=== PATIENT | male | born 1980 ===

== ENCOUNTER 2020-06-23 08:13 | Outpatient (REF) | payer OTHER, SELFPAY ==
--- NOTE | 2020-06-23 08:45 | XR_ITS ---
EXAMINATION: XR KNEE, RIGHT CLINICAL INFORMATION: Pain COMPARISON: None TECHNIQUE: Four views of the right knee. FINDINGS: Bones and soft tissues are normal. No fracture or joint effusion. Alignment is anatomic. Joint spaces are well maintained. No abnormal soft tissue calcification. XR/XR knee RT 4V IMPRESSION: Normal right knee.
[2020-06-23 08:51] LABS: MANUAL DIFF FLAG NO
[2020-06-23 08:55] LABS: Basophils Percent Auto 0.6 % (0-2); Eosinophils Absolute Auto 0.1 X10*3/uL (0.0-0.4); Hematocrit 44.2 % (42-52); Hemoglobin 15.9 g/dl (14.0-18.0); Imm Gran Abs Auto 0.01 X10*3/uL (0.00-0.03); Imm Gran Pct Auto 0.2 % (0.0-0.4); Lymphocytes Absolute Auto 1.5 X10*3/uL (1.2-4.9); Lymphocytes Percent Auto 30.1 % (20-40); Mean Corpuscular Hemoglobin 31.4 pg (27.0-33.0); Mean Corpuscular Volume 87.4 fL (80-98); Mean Platelet Volume 11.3 fL (9.4-12.4); Monocytes Absolute Auto 0.4 X10*3/uL (0.1-1.2); Monocytes Percent Auto 8.7 % (2-11); Neutrophils Absolute Auto 2.9 X10*3/uL (2.0-8.3); Neutrophils Percent Auto 58.4 % (45-73); Platelet Count 189 X10*3/uL (160-400); Red Blood Count 5.06 X10*6/uL (4.60-5.80); Red Cell Distribution Width 12.8 % (11.0-16.0)
[2020-06-23 09:24] LABS: Alanine Aminotransferase 22 U/L (0-40); Albumin Level 4.5 g/dL (3.5-5.0); Alkaline Phosphatase 48 U/L (39-117); Anion Gap 11 (12-20); Aspartate Amino Transferase 15 U/L (5-37); Bilirubin Total 1.3 mg/dL (0.0-1.0); Blood Urea Nitrogen 17 mg/dL (9-16); Calcium 9.3 mg/dL (8.4-10.2); Carbon Dioxide 28 mmol/L (22-29); Chloride 105 mmol/L (96-108); Cholesterol 173 mg/dL; Estimated Glomerular Filt Rate > 60; Glucose Fasting 95 mg/dL (60-99); HDL Cholesterol 56 mg/dL; LDL Cholesterol Calculated 105 mg/dl; Potassium 5.4 mmol/l (3.3-5.1); Sodium 139 mmol/L (135-145); Total Protein 7.5 g/dL (6.5-8.0); Triglycerides 63 mg/dL
[2020-06-23 10:35] LABS: Glucose Urine UA NEG (NEG); Leukocyte Esterase Urine NEG (NEG); Nitrite Urine NEG (NEG); Prostate Specific Antigen 4.32 ng/mL (<0.05-4.0); Specific Gravity - Urine 1.025 (1.005-1.025); Urine Blood NEG (NEG); Urine Ketones NEG (NEG); Urine Protein NEG (NEG-TRACE)
[2020-06-23 10:40] LABS: Appearance Urine CLEAR; Color Urine YELLOW
== END 2020-06-23 08:14 | disposition home or self-care (01) ==
LOC: HO.LAB 08:13
PROVIDERS: Visit Provider Internal Medicine Medical Oncology
DX: N40.0 Benign prostatic hyperplasia without lower urinary tract symptoms (principal); Z00.00 Encounter for general adult medical examination without abnormal findings; M25.561 Pain in right knee
CPT/HCPCS: 36415; 73564; 80053; 80061; 81003; 84153; 85025

== ENCOUNTER → 2020-07-13 13:34 | Outpatient (BNVA) | payer OTHER, SELFPAY | PROVIDERS: Visit Provider Orthopaedic Surgery | DX: Z76.89 Persons encountering health services in other specified circumstances (principal) ==

== ENCOUNTER 2020-07-21 16:26 | Outpatient (REF) | payer OTHER, SELFPAY | END 2020-07-21 16:27 | disposition home or self-care (01) | LOC: HO.LNP 16:26 | PROVIDERS: Visit Provider Internal Medicine Medical Oncology | DX: R39.9 Unspecified symptoms and signs involving the genitourinary system (principal); R21 Rash and other nonspecific skin eruption | CPT/HCPCS: 87086 ==

== ENCOUNTER 2020-07-28 14:43 | Outpatient (REF) | payer OTHER, SELFPAY ==
[2020-07-28 16:18] LABS: Prostate Specific Antigen 3.78 ng/mL (<0.05-4.0)
[2020-07-29 11:22] LABS: Free Prostate Spec Ag 0.6 ng/mL; Percent Free Prostate Spec Ag 18 % (calc) (>25); Prostate Specific Ag Total 3.4 ng/mL (< OR = 4.0)
== END 2020-07-28 14:44 | disposition home or self-care (01) ==
LOC: HO.LAB 14:43
PROVIDERS: PCP Internal Medicine Medical Oncology; Visit Provider Internal Medicine Medical Oncology
DX: R97.20 Elevated prostate specific antigen [PSA] (principal); Z12.5 Encounter for screening for malignant neoplasm of prostate
CPT/HCPCS: 36415; 84153; 84154

== ENCOUNTER 2021-07-28 10:52 | Outpatient (REF) | payer SELFPAY ==
[2021-07-28 12:51] LABS: Binax Internal Control QC Valid; Binax Now Covid-19 Ag Negative (Negative)
== END 2021-07-28 10:53 | disposition home or self-care (01) ==
LOC: HO.LAB 10:52
PROVIDERS: Visit Provider Internal Medicine
DX: Z20.822 Contact with and (suspected) exposure to COVID-19 (principal)
CPT/HCPCS: C9803

== ENCOUNTER 2024-01-12 08:17 | Outpatient (REF) | payer BC, SELFPAY ==
[2024-01-12 08:29] LABS: MANUAL DIFF FLAG NO
[2024-01-12 09:11] LABS: Basophils Percent Auto 0.5 % (0-2); Eosinophils Absolute Auto 0.1 X10*3/uL (0.0-0.4); Eosinophils Percent Auto 0.9 % (0-4); Hematocrit 43.2 % (42.0-52.0); Hemoglobin 15.5 g/dl (14.0-18.0); Imm Gran Abs Auto 0.02 X10*3/uL (0.00-0.03); Imm Gran Pct Auto 0.3 % (0.0-0.4); Lymphocytes Absolute Auto 1.7 X10*3/uL (1.2-4.9); Lymphocytes Percent Auto 29.5 % (20-40); Mean Corpuscular HGB Conc 35.9 g/dl (31.0-36.0); Mean Corpuscular Hemoglobin 31.3 pg (27.0-33.0); Mean Corpuscular Volume 87.3 fL (80.0-98.0); Mean Platelet Volume 11.2 fL (9.4-12.4); Monocytes Absolute Auto 0.5 X10*3/uL (0.1-1.2); Monocytes Percent Auto 8.1 % (2-11); Neutrophils Absolute Auto 3.5 x10*3/uL (2.0-8.3); Neutrophils Percent Auto 60.7 % (45-73); Platelet Count 189 X10*3/uL (160-400); Red Blood Count 4.95 X10*6/uL (4.60-5.80); Red Cell Distribution Width 12.9 % (11.0-16.0); White Blood Count 5.8 X10*3/uL (4.8-10.8)
[2024-01-12 09:54] LABS: Alanine Aminotransferase 14 U/L (0-40); Albumin Level 4.8 g/dL (3.5-5.0); Alkaline Phosphatase 40 U/L (39-117); Anion Gap 13 (12-20); Aspartate Amino Transferase 18 U/L (5-37); Blood Urea Nitrogen 15 mg/dL (9-16); Calcium 9.8 mg/dL (8.4-10.2); Carbon Dioxide 28 mmol/L (22-29); Chloride 106 mmol/L (96-108); Cholesterol 169 mg/dL (<200); Estimated Glomerular Filt Rate > 60; Glucose Random 84 mg/dL (60-115); HDL Cholesterol 64 mg/dL (>40); LDL Cholesterol Calculated 95 mg/dL (<100); Potassium 4.8 mmol/L (3.3-5.1); Sodium 142 mmol/L (135-145); Total Protein 7.7 g/dL (6.5-8.0); Triglycerides 52 mg/dL (<150)
[2024-01-12 10:12] LABS: Prostate Specific Antigen 4.88 ng/mL (<0.05-4.0)
== END 2024-01-12 08:18 | disposition home or self-care (01) ==
LOC: HO.LAB 08:17
PROVIDERS: PCP Internal Medicine Medical Oncology; Visit Provider Internal Medicine Medical Oncology
DX: Z00.00 Encounter for general adult medical examination without abnormal findings (principal); Z12.5 Encounter for screening for malignant neoplasm of prostate
CPT/HCPCS: 36415; 80053; 80061; 84153; 85025

== ENCOUNTER 2024-04-03 15:00 | Outpatient (REF) | payer BC, SELFPAY ==
[2024-04-04 08:13] LABS: Syphilis Screen Nonreactive (Nonreactive)
[2024-04-04 08:20] LABS: HIV AB/AG Nonreactive (Nonreactive); HIV Num 1 0.06 S/CO (0.00-0.99)
[2024-04-04 12:43] LABS: Free Prostate Spec Ag 0.6 ng/mL; Percent Free Prostate Spec Ag 12 % (calc) (>25); Prostate Specific Ag Total 4.9 ng/mL (< OR = 4.0)
[2024-04-04 13:44] LABS: CT PCR NOT DETECTED (Not Detect.); NG PCR NOT DETECTED (Not Detect.)
== END 2024-04-03 15:01 | disposition home or self-care (01) ==
LOC: HO.LAB 15:00
PROVIDERS: PCP Internal Medicine Medical Oncology; Visit Provider Internal Medicine Medical Oncology
DX: R97.20 Elevated prostate specific antigen [PSA] (principal); Z20.6 Contact with and (suspected) exposure to human immunodeficiency virus [HIV]; Z20.2 Contact with and (suspected) exposure to infections with a predominantly sexual mode of transmission
CPT/HCPCS: 84154; 86780; 87389; 87491; 87591

== ENCOUNTER → 2024-05-08 10:51 | Outpatient (BNVA) | payer OTHER, SELFPAY | PROVIDERS: PCP Internal Medicine Medical Oncology; Visit Provider Physician Assistant | DX: S46.811D Strain of other muscles, fascia and tendons at shoulder and upper arm level, right arm, subsequent encounter (principal); S46.911D Strain of unspecified muscle, fascia and tendon at shoulder and upper arm level, right arm, subsequent encounter; X50.1XXD Overexertion from prolonged static or awkward postures, subsequent encounter | CPT/HCPCS: 73030; 99204 ==

== ENCOUNTER → 2024-05-22 12:00 | Outpatient (BNVA) | payer OTHER, SELFPAY | PROVIDERS: PCP Internal Medicine Medical Oncology; Visit Provider Physician Assistant | DX: S46.811D Strain of other muscles, fascia and tendons at shoulder and upper arm level, right arm, subsequent encounter (principal); S46.911D Strain of unspecified muscle, fascia and tendon at shoulder and upper arm level, right arm, subsequent encounter; X50.1XXD Overexertion from prolonged static or awkward postures, subsequent encounter | CPT/HCPCS: 99213 ==

== ENCOUNTER → 2024-06-05 12:06 | Outpatient (BNVA) | payer OTHER, SELFPAY | PROVIDERS: PCP Internal Medicine Medical Oncology; Visit Provider Physician Assistant Medical | DX: S46.811D Strain of other muscles, fascia and tendons at shoulder and upper arm level, right arm, subsequent encounter (principal); S46.911D Strain of unspecified muscle, fascia and tendon at shoulder and upper arm level, right arm, subsequent encounter; X50.1XXD Overexertion from prolonged static or awkward postures, subsequent encounter | CPT/HCPCS: 99213 ==

== ENCOUNTER → 2024-06-26 12:06 | Outpatient (BNVA) | payer OTHER, SELFPAY | PROVIDERS: PCP Internal Medicine Medical Oncology; Visit Provider Physician Assistant | DX: S46.811D Strain of other muscles, fascia and tendons at shoulder and upper arm level, right arm, subsequent encounter (principal); S46.911D Strain of unspecified muscle, fascia and tendon at shoulder and upper arm level, right arm, subsequent encounter; X50.1XXD Overexertion from prolonged static or awkward postures, subsequent encounter | CPT/HCPCS: 99213 ==

== ENCOUNTER 2024-06-30 15:01 | Outpatient (REF) | payer OTHER, BC, SELFPAY ==
[2024-07-01 12:19] LABS: Free Prostate Spec Ag 0.9 ng/mL; Percent Free Prostate Spec Ag 21 % (calc) (>25); Prostate Specific Ag Total 4.3 ng/mL (< OR = 4.0)
== END 2024-06-30 15:02 | disposition home or self-care (01) ==
LOC: HO.LAB 15:01
PROVIDERS: PCP Internal Medicine Medical Oncology; Visit Provider Internal Medicine Medical Oncology
DX: R97.20 Elevated prostate specific antigen [PSA] (principal)
CPT/HCPCS: 36415; 84154

== ENCOUNTER → 2024-07-17 11:45 | Outpatient (BNVA) | payer OTHER, SELFPAY | PROVIDERS: PCP Internal Medicine Medical Oncology; Visit Provider Physician Assistant | DX: S46.811D Strain of other muscles, fascia and tendons at shoulder and upper arm level, right arm, subsequent encounter (principal); S29.012D Strain of muscle and tendon of back wall of thorax, subsequent encounter; S46.911D Strain of unspecified muscle, fascia and tendon at shoulder and upper arm level, right arm, subsequent encounter; X50.1XXD Overexertion from prolonged static or awkward postures, subsequent encounter | CPT/HCPCS: 99213 ==

== ENCOUNTER 2024-07-25 09:44 | Outpatient (RCR) | payer OTHER, SELFPAY ==
--- NOTE | 2024-09-30 09:16 | MHC.PT.DC ---
[facility] [place] Office [place] Office [place] Office [address] Pamela Petty [address] [phone] F: [phone] F: [phone] F: [phone] F: [phone] Physical Therapy Discharge Report Diagnosis: RIGHT SHOULDER STRAIN (KP) Date of Surgery: N/A Date of Evaluation: 06/18/24 Date of Discharge: 09/30/24 Treatments to Date: 8 Cancellations to Date: 0 No Shows to Date: 0 Discharge Status: Insurance Declined Tx Discharge Summary: Awaiting insurance approval > 60 days. Will need to perform new eval at this time if treatment resumes. Will DC current chart. Electronically signed by: Ericka Barajas PT DPT Please sign and return to therapist. Thank you for your referral.
== END 2024-09-30 09:15 | disposition home or self-care (01) ==
LOC: HO.PT 09:44
PROVIDERS: PCP Internal Medicine Medical Oncology; Visit Provider Physician Assistant
DX: S46.811D Strain of other muscles, fascia and tendons at shoulder and upper arm level, right arm, subsequent encounter (principal)
CPT/HCPCS: 97110; 97140; 97161; 97530

== ENCOUNTER → 2024-07-31 12:02 | Outpatient (BNVA) | payer OTHER, SELFPAY | PROVIDERS: PCP Internal Medicine Medical Oncology; Visit Provider Physician Assistant | DX: S46.811D Strain of other muscles, fascia and tendons at shoulder and upper arm level, right arm, subsequent encounter (principal); S29.012D Strain of muscle and tendon of back wall of thorax, subsequent encounter; S46.911D Strain of unspecified muscle, fascia and tendon at shoulder and upper arm level, right arm, subsequent encounter; X50.1XXD Overexertion from prolonged static or awkward postures, subsequent encounter | CPT/HCPCS: 99214 ==

== ENCOUNTER 2024-10-27 12:41 | Outpatient (AMB) | payer OTHER, SELFPAY ==
--- NOTE | 2024-10-27 12:57 | MHC.OFFVIS ---
Vital Signs 10/27/24 13:02 Height 6 ft 2 in Weight 189 lb BMI 24.3 BP 136/78 Blood Pressure Location Rt brachial Position Sitting Respiration 16 Pulse 78 Pulse Source Pulse Oximeter Pulse Oximetry (%) 99 Oxygen Delivery Method Room Air Intake Visit Reasons: WC Rt Shoulder Intake Note: Pain today 09/22 Welcome Wagon Host/Hostess Required: Yes Welcome Wagon Host/Hostess Language: Baggage Checker Services: Welcome Wagon Host/Hostess Present Welcome Wagon Host/Hostess Name: Carla #[id number] Information Interpreted: non-clinical & clinical Accompanied by: Self / Same As Patient Allergies No Known Allergies Allergy (Verified 10/27/24 13:00) HPI HPI WC Rt Shoulder: Details: PT- CORE finished a few months ago Location: Right shoulder Duration: 1 year Characteristics of symptom or complaint: tightness Aggravating or associated factors: movement Relieving factors: tylenol Treatment: tylenol, PT, HPI Comments Details: The patient is a 44-year-old male presenting with pain evaluation and management. Approximately one year prior, he experienced a work-related right shoulder injury characterized by persistent pain, aggravated by movement and described as muscle spasms. Initial imaging revealed no abnormalities, and pain attributed to muscular issues was exacerbated by prescribed exercises. This pain radiates to the scapula, right cervical paraspinals and shoulder blades and sometimes causes numbness, tingling, and electric sensations in the right upper extremity and particularly right thumb. Although previous treatments like Ibuprofen and Cyclobenzaprine had adverse effects, other medications and referral for neck imaging have been considered to assess cervical radiculopathy. - Onset: Approximately one year ago following work-related injury. - Quality and character: Right shoulder-clicking, aching and popping, Neck-spasming, electric-like, tingling, numbness sensations. - Primary location: Right shoulder, radiating to scapula and right upper trapezius. - Exacerbating factors: Overhead reaching, neck flexion, donning/doffing clothing. - Relieving factors: Hot showers, some reduction with Cyclobenzaprine. 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 - Affect: Pain impacts patient?s ability to perform occupational tasks, particularly overhead activities. - Analgesia: Previous use of Ibuprofen and Cyclobenzaprine; both had adverse effects. Pain remains significant at rest. - Adverse Effects: Chest pain from Ibuprofen; drowsiness from Cyclobenzaprine. - Activities of Daily Living: Restricted overhead painting tasks hinder occupational performance. - Aberrant Drug Related Behaviors: None reported. 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 - Neurological: Reports numbness and tingling in right arm and right thumb; denies headaches currently. - Social: Denies alcohol or illicit drug use except for social alcohol consumption. All systems reviewed & are unremarkable except as noted in HPI and below Physical Exam Vital Signs: Last Vital Signs Pulse Ox 99 10/27/24 13:02 Oxygen Delivery Method Room Air 10/27/24 13:02 BMI result Body Mass Index 24.3 General: Appears afebrile. Alert and oriented. Mood and affect appropriate. Follows and participates in conversation appropriately. Respiratory effort is unlabored. No cough. Able to transition from sit to stand unassisted. Ambulates with bilaterally normal heel strike and toe off. Neck Other: Patient with decreased cervical ROM in all planes/especially with right lateral rotation. Reports increased pain with cervical flexion. Spurling compression test equivocal. Pain is unchanged by Spurling maneuver with retraction. Elvey's tension test positive on the right, with radiation of pain from neck to wrist and tingling in right thumb. Lhermitte's test was negative. DTR intact, +2 and symmetrical. No clonus. Patient demonstrated 5/5 motor strength of bilateral upper extremities. Normal test service operator bilaterally. 2 + radial pulses. Significant tightness throughout right upper trapezius and rhomboids as well as TTP throughout bilateral upper trapezius muscles. No paravertebral tenderness over facet joints bilaterally. Neck: Yes normal visual inspection, Yes full ROM, Yes no lymphadenopathy, Yes supple, No anterior neck swelling, No torticollis, Yes no JVD, No prominent supraclavicular fat pad and No prominent dorsocervical fat pad General: Yes no CVA tenderness Back/Spine/Pelvis Back: no CVA tenderness Cervical Spine: cervical ROM normal, pain with cervical ROM (bending and right sided lateral rotation with bending), No Cervical spine scars present, cervical spasm, No Cervical spine tenderness and No step off deformity Thoracic/Lumbar Spine: thoracic and lumbar spine normal to inspection, No Thoracic/lumbar spine scar(s), thoraco-lumbar ROM normal, No thoracic spinal tenderness and No lumbar spinal tenderness Extrem General: Yes capillary refill normal, Yes no clubbing, cyanosis or edema and Yes no calf tenderness Right upper extremity: shoulder/upper arm (Clicking and popping sounds during overhead movements) Details: normal to inspection, tenderness Location: of the A-C joint, over the biceps tendon and over the subacromial bursa, normal ROM (increased pain with overhead reaches) and crepitus; no swelling, no ecchymosis, no deformity and no unusual warmth Results Reviewed Results Reviewed: XR SHOULDER, RIGHT 05/08/24 CLINICAL INFORMATION: pain and limited ROM COMPARISON: None available. TECHNIQUE: AP external rotation, Grashey, scapular Y, and axillary views of the right shoulder. FINDINGS: No acute fracture. The humeral head is well-seated within the glenoid fossa. The acromioclavicular joint is intact. The coracoid process and visualized scapula are intact. The acromiohumeral interval is normal. No evidence of soft tissue swelling. No abnormal calcifications or loose bodies. The visualized portions of the lungs are clear. Visualized ribs and clavicle are intact. IMPRESSION: Normal right shoulder. Assessment & Plan Assessment & Plan (1) Muscle spasms of neck: Code(s): M62.838 - Other muscle spasm Category: Medical (2) Cervicalgia: Code(s): M54.2 - Cervicalgia Category: Medical (3) Cervical radiculitis: Code(s): M54.12 - Radiculopathy, cervical region Category: Medical (4) Right shoulder pain: Code(s): M25.511 - Pain in right shoulder Category: Medical (5) Work related injury: Code(s): Y99.0 - Civilian activity done for income or pay Category: Medical Plan The patient will proceed with imaging studies including an MRI of the right shoulder and cervical spine X-ray to explore potential causes for prolonged pain and clicking sensation possibly related to rotator cuff pathology or cervical radiculopathy. Tylenol and trial of Gabapentin for symptomatic pain relief, patient is aware to monitor for any side effects. Topical analgesics and heat therapy will assist in managing muscle spasms. The patient is to avoid aggravating movements, emphasizing neck and right shoulder integrity, and will consider interventional approaches once diagnostic data is detailed. All questions and concerns have been answered and patient agreed with the treatment plan. A follow-up will consolidate treatment plans in line with diagnostic outcomes and sooner as needed. Patient was informed and verbally consented to the use of an ambient scribe for clinic note documentation during this visit. Orders: Orders XR cervical spine 4V Today M54.12 - Radiculopathy, cervical region, M54.2 - Cervicalgia, M62.838 - Other muscle spasm MR shoulder RT wo con Today M25.511 - Pain in right shoulder, Y99.0 - Civilian activity done for income or pay Medications: New gabapentin 300 mg PO DAILY 30 days 30 caps 0RF pain M25.511 - Pain in right shoulder, M54.12 - Radiculopathy, cervical region, M54.2 - Cervicalgia camphor-methyl salicyl-menthol 3.1 %-10 %-6 % (large) (Salonpas) may leave on for up to 12 hrs 1 patch topical BID 30 days PRN 6 ea 0RF pain M25.511 - Pain in right shoulder, M54.2 - Cervicalgia, M62.838 - Other muscle spasm Discontinued ibuprofen Discontinued Reason: Patient no longer taking 800 mg PO TID 60 tabs 0RF pain swelling Patient Instructions: I discussed with the patient the likeliness of underlying shoulder joint or nerve involvement, reflected by symptoms of clicking, popping, and nerve irradiation. Diagnostic imaging was ordered to further clarify the source of pain and a pragmatic plan encompassing pharmacological and non-invasive approaches were outlined. I elaborated on Gabapentin's potential efficacy and the rationale behind its recommendation, alongside the importance of MRI findings for complete diagnosis. Interventional techniques requiring sedation were introduced as future solutions contingent upon diagnostic feedback, ensuring patient understanding and consent were confirmed. - Proceed with scheduled MRI for the right shoulder. - Complete cervical spine X-ray today as instructed. - Continue using Tylenol for pain management. - Apply Salonpas patches as necessary for muscle relief. - Avoid provocative shoulder and neck movements. - Try a trial of Gabapentin, monitoring for side effects. - Follow up once diagnostic results are obtained. - Report any worsening symptoms immediately to medical assistance. Coding Level of Care Code New Pt Level 4 (44382) Diagnoses Muscle spasms of neck M62.838 Cervicalgia M54.2 Cervical radiculitis M54.12 Right shoulder pain M25.511 Work related injury Y99.0
[2024-10-27 13:02] VITALS: BP 136/78; PULSE 78; RESP 16; O2SAT 99; BMI 24.3
--- OUTSIDE RECORDS SUMMARY | 2024-10-27 14:35 | XMS_ITS | Encounter Summary ---
Author Organization [facility] Address [address] [place] [address] Care Team Providers Care Mixing Operator Name Role Phone Issac Love MD Primary Care Provider Frieda lopez Encounter Details Date Type Department Care Team Description 06/22/2020 Research Microbiologist Report Medical Records [address] [place] [address] Placido Torres Social History Tobacco Use Types Packs/Day Years Used Date Smoking Tobacco: Former Cigarettes Smokeless Tobacco: Former Alcohol Use Standard Drinks/Week Comments Yes 0 (1 standard drink = 0.6 oz pur e alcohol) very seldom Alcohol Habits Answer Date Recorded How often do you have a drink containing alcohol ? Monthly or less 01/29/2020 How many drinks containing a lcohol do you have on a typical day when you are drinking? 1 or 2 01/29/2020 How often do you have six or more drinks on one occasion? Less than monthly 01/29/2020 Sex Assigned at Date Recorded Male 05/25/2020 8:[address] documented as of this encounter Plan of Treatment Not on file documented as of this encounter Visit Diagnoses Not on filedocumented in this encounter Care Teams Mixing Operator Relationship Specialty Start Date End Date Issac Love MD PCP - General Internal Medicine 10/30/19 documented as of this encounter
--- OUTSIDE RECORDS SUMMARY | 2024-10-27 14:35 | XMS_ITS ---
Author Organization Mahendra Dejesus III, MD Address [address] [place] [address] [place] [address] Care Team Providers Care Manager Camp Name Role Phone Mahendra Dejesus Primary Care Provider Allergies Allergen (clinical drug ingredient) Drug/Non Drug Allergy documented on EMR Reaction Allergy Type Onset Date Status No Known Drug Allergy Unknown Drug Allergy Active REASON FOR VISIT Review labs Social History Tobacco Use: Social History Observation Description Date Details (start date - stop date) Former Smoker NA - NA Sex Assigned At : Social History Observation Description Sex Assigned At Male Tobacco Use/Smoking Question Answer Notes Patient is a former smoker How long has it been since you last smoked? > 10 years Additional Findings: Tobacco Non-User Ex-cigaret te smoker Vital Signs Temperature 97.0 degrees Fahrenheit 07/07/20 24 Blood pressure systolic 115 mm Hg 07/07/20 24 Blood pressure diastolic 89 mm Hg 024 Heart Rate 80 /min 07/07/2024 Height 74 in in 07/07/2024 Weight 188 lbs 07/07/2024 BMI 24.14 kg/m2 07/07/2024 Encounters Encounter Location Date Provider Diagnosis Mahendra Dejesus III, MD [address] [place] [address] [place] [address] 07/07/2024 Mahendra Dejesus Elevated PSA R97.20 ; Right knee pain M25.561 ; Chronic low back pain with sciatica M54.40 ; Former smoker Z87.891 and Migraine with aura and without status migrainosus, not intractable G43.109 Assessments Encounter Date Diagnosis (ICD Code) Assessment Notes Treatment Notes Treatment Clinical Notes 07/07/2024 Elevated PSA (ICD-10 - R97.20) On a recent visit his PSA was slightly elevated at 4.9 with a free PSA of 12. We decided we would repeat it. He had no symptoms and no pelvic pain. The repeat PSA has fallen to 4.3 and the free PSA has increased from 12-21. This is inconsistent with prostate cancer. He'll be observed in the PSA will be repeated in 3 months when he returns in September 2024. 07/07/2024 Right knee pain (ICD-10 - M25.561) This pain has resolved and no longer bothers him. 07/07/2024 Chronic low back pain with sciatica (ICD-10 - M54.40) The pain is intermittent and mild. He is avoiding heavy lifting. 07/07/2024 Former smoker (ICD-10 - Z87.891) He is highly motivated not to smoke. We formulated a plan to prevent relapse in times of stress and illness. 07/07/2024 Migraine with aura and without status migrainosus, not intractable (ICD-10 - G43.109) These are infrequent and he has medication if necessary. Plan Of Treatment Pending Test Test Name Order Date PROFILE, FASTING (COMPREHENSIVE METABOLI C) 07/07/2024 CBC w DIFF 07/07/2024 PSA Free and Total 07/07/2024 Next Appt Details Follow Up: 3 Months, Reason: Office visit Provider Name:Mahendra Dejesus, 02/11/2025 04:00:00 PM, [address] [place] [address] [place] [address], [place], [address], Progress Notes * Kal GARCIA MDOB: (43 yo M)Acc No.[id number]:07/07/2024 Progress Notes Patient:?Navneet GARCIA r Mesha Provider:?Mahendra Dejesus MD :1980???Age:43 Y???Sex:Male Bam e:07/07/2024 Address:[facility] [address] , [place] Subjective: * Chief Complaints: * ???Review labs * HPI: ???COVID-19 Screening:?Questions?Have you had any new onset fever, chills, cough, congestion, sore throat, shortness of breath, muscle aches??No * ROS:?General/Constitutional:?pain?only normal aches and pains.?Chills?denies.?Fatigue?admits.?Fever?denies.?ENT:?Decreased hearing?denies.?Respiratory:?Cough?denies.?Cardiovascular:?Chest pain with exertion?denies.?Dyspnea on exertion?denies.?Shortness of breath?denies.?Gastrointestinal:?Constipation?denies.?Decreased appetite?denies.?Diarrhea?denies.?Heartburn?denies.?Nausea?denies.?Rectal bleeding?denies.?Vomiting?denies.?Hematology:?bruising?denies.?petechiae?denies.?Swollen glands?none have been noted.?Genitourinary:?Frequent urination?denies.?Musculoskeletal:?Muscle aches?denies.?Painful joints?denies.?Sciatica?denies.?Weakness?denies.?Skin:?Itching?denies.?Rash?denies.?Skin lesion(s)?denies.?Neurologic:?Difficulty speaking?denies.?Dizziness?denies.?Headache?denies.?Low back pain?denies.?Psychiatric:?Depressed mood?denies.? * Medical History:? * Surgical History:?No history * Hospitalization/Major Diagno stic Procedure:?No history * Family History:?Father: dece ased, Cause of unknown.?Mother: alive, Alive and well, diagnosed with HTN.?Children: alive.?Siblings: alive.?1 brother(s) , 6 sister(s) - healthy. 1 son(s) , 2 daughter(s) - healthy. .? He has no information about the cause of his father's . His mother is alive and well. His brother and 6 sisters are healthy and well. He is not aware of any inherited cancer family syndromes. * Social History:?Tobacco Use:?Tobacco Use/Smoking?Patient is a?former smoker ?How long has it been since you last smoked??> 10 years ?Additional Findings: Tobacco Non-User?Ex-cigarette smoker ???He was born and raised in [place], [place]. He came to the [facility] 3 years ago. He lives in [facility] and has a significant other. He is working full-time At [employer] in [place] where he is required to wear a mask at times because of exposure to acetone. * Medications:?None * Allergies:?No Known Drug All ergyno[Allergies Verified] Objective: * Vitals:?Ht: 74 in, Wt: 188, BMI:24.14, BP: 115/89, HR: 80, Temp: 97.0, Ht-cm: 187.96, Wt-k.28. * ???Past Orders: Lab:PSA Free and Total * Collection Date 06/30/2024 04/03/2024 Collection Time 03:18 PM 03:25 PM Order Date 06/30/2024 04/03/2024 Prostate Specific Ag Total 4.3?A (Ref Range: < OR = 4.0 ng/mL) 4.9?A (Ref Range: < OR = 4.0 ng/mL) Percent Free Prostate Spec Ag 21?A (Ref Range: >25 % (calc)) 12?A (Ref Range: >25 % (calc)) Free Prostate Spec Ag 0.9 (Ref Range: ng/mL) 0.6 (Ref Range: ng/mL) ???Imaging:XR shoulder RT min 2V (Order Date - 05/08/2024) (Performed Date - 05/08/2024) * Examination: ???General Examination: ?GENERAL APPEARANCE:?pleasant, well nourished, well developed, in no acute distress, calm and relaxed.?HEAD:?atraumatic, normocephalic.?EYES:?eomi, perrla, anicteric, conjugate.?EARS:?normal.?NOSE:?septum intact.?ORAL CAVITY:?normal, unremarkable.?NECK/THYROID:?no jugular venous distention, no carotid bruit, thyroid normal.?LYMPH NODES:?no enlarged lymph nodes,spleen normal.?SKIN:?no suspicious lesions, anicteric.?HEART:?no clicks, gallops, murmurs, or rubs, regular rhythm, S1, S2 normal, no s3, or vascular bruits.?LUNGS:?clear to auscultation .?BREASTS:??no masses palpable bilaterally.?ABDOMEN:?bowel sounds normal, no ascites, no organomegaly, no mass.?RECTAL EXAM:?not examined.?MUSCULOSKELETAL:?extremities unremarkable, no clubbing, cyanosis or edema.?PERIPHERAL PULSES:?normal.?NEUROLOGIC:?alert and oriented, cranial nerves 2-12 grossly intact, deep tendon reflexes 2+ symmetrical, motor strength normal upper and lower extremities, sensory exam intact.?PSYCH:?alert, oriented.? Assessment: * Assessment: 1.?Elevated PSA - R97.20 (Pr imary)???Notes :On a recent visit his PSA was slightly elevated at 4.9 with a free PSA of 12.? We decided we would repeat it.? He had no symptoms and no pelvic pain.? The repeat PSA has fallen to 4.3 and the free PSA has increased from 12-21.? This is inconsistent with prostate cancer.? He'll be observed in the PSA will be repeated in 3 months when he returns in September 2024.???2.?Right knee pain - M25.561???Notes :This pain has resolved and no longer bothers him.???3.?Chronic low back pain with sciatica - M54.40???Notes :The pain is intermittent and mild. He is avoiding heavy lifting.???4.?Former smoker - Z87.891???Notes :He is highly motivated not to smoke. We formulated a plan to prevent relapse in times of stress and illness.???5.?Migraine with aura and without status migrainosus, not intractable - G43.109???Notes :These are infrequent and he has medication if necessary.??? Plan: * Treatment: * Procedure Codes:? * Preventive Medicine:? ??Counseling:?Smoking/Tobacco Use?Patient counseled on the dangers of tobacco use and urged to quit.?07/07/2024 * Follow Up:?3 Months (Reason: Office visit) * Images: * Sign off status: Completed true * Provider:?Mahendra Dejesus MD Date:?06/16 Generated for Mik vasquez/Ruth/eTvladimirsmitting on:?10/27/2024 02:34 PM EDT History and Physical Notes * HPI (History of Present Illness) Category Sub-Category Detail Notes COVID-19 Screening Questions Have you had any new onset fever, chills, cough, congestion, sore throat, shortness of breath, muscle aches?: No Examination Category Sub-Category Detail Notes General Examination GENERAL APPEARANCE: pleasant , well nourished, well developed, in no acute distress, calm and relaxed HEAD: atraumatic, normocep halic EYES: eomi, perrla, anicte cindy, conjugate EARS: normal NOSE: septum intact NECK/THYROID: no jugular venous di stention, no carotid bruit, thyroid normal HEART: no clicks, gallops, murmurs, or rubs, regular rhythm, S1, S2 normal, no s3, or vascular bruits LUNGS: clear to auscultatio n ABDOMEN: bowel sounds normal, no ascites, no organomegaly, no mass NEUROLOGIC: alert and oriented, cranial nerves 2-12 grossly intact, deep tendon reflexes 2+ symmetrical, motor strength normal upper and lower extremities, sensory exam intact SKIN: no suspicious lesion s, anicteric PERIPHERAL PULSES: normal BREASTS: no masses palpable b ilaterally MUSCULOSKELETAL: extremities unremark able, no clubbing, cyanosis or edema LYMPH NODES: no enlarged lymph no january,spleen normal RECTAL EXAM: not examined PSYCH: alert, oriented ORAL CAVITY: normal, unremarkable
--- OUTSIDE RECORDS SUMMARY | 2024-10-27 14:35 | XMS_ITS ---
Author Organization Mahendra Dejesus III, MD Address [address] [place] [address] Care Team Providers Care Recreation Therapy Aides Teacher Name Role Phone Mahendra Dejesus Primary Care Provider [phone] Results Component Value Reference Range Notes PSA Free and Total Reviewed date:05/12/2024 09:23:19 AM Interpretation: Performing Lab:[facility], [address] [place] [phone] Notes/Report: Prostate Specific Ag Total 4.9 < OR = 4.0 ng/ mL Percent Free Prostate Spec Ag 12 >25 % (calc) PSA(ng/mL) Free PSA(%) Estimated(x) Probability of Cancer(as%) 0-2.5 (*) Approx. 1 2.6-4.0(1) 0-27(2) 24(3) 4.1-10(4) 0-10 56 11-15 28 16-20 20 21-25 16 >or =26 8 >10(+) N/A >50 References:(1)Toshia et al.:Urology 60: 469-474 (2002) (2)Lloydona et al.:J.Urol 168: 922-925 (2001) Free PSA(%) Sensitivity(%) Specificity(%) < or = 25 85 19 < or = 30 93 9 (3)oTshia et al.:KACI 277: 3215-5315 (1996) (4)Catalona et al.:KACI 279: 6023-4062 (1997) (x)These estimates vary with age, ethnicity, family history and CAMERON results. (*)The diagnostic usefulness of % Free PSA has not been established in patients with total PSA below 2.6 ng/mL (+)In men with PSA above 10 ng/mL, prostate cancer risk is determined by total PSA alone. The Total PSA value from this assay system is standardized against the equimolar PSA standard. The test result will be approximately 20% higher when compared to the WHO-standardized Total PSA (Siemens assay). Comparison of serial PSA results should be interpreted with this fact in mind. PSA was performed using the Eugenia [place] Immunoassay method. Values obtained from different assay methods cannot be used interchangeably. PSA levels, regardless of value, should not be interpreted as absolute evidence of the presence or absence of disease. THIS TEST WAS PERFORMED AT: [facility] [address] [address] BENNY BLOOD MD Free Prostate Spec Ag 0.6 CT NG by PCR Reviewed date:05/12/2024 09:23:19 AM Interpretation: Performing Lab:[facility], [address] [place] [phone] Notes/Report: Urine CT PCR NOT DETECTED Not Detect. A not detected test result does not exclude the possibility of infection because test results can be affected by improper specimen collection, concurrent antibiotic therapy, or the number of organisms in the specimen which may be below the sensitivity of the test. As with many diagnostic tests, results from the Xpert CT/NG assay should be interpreted in conjunction with other laboratory and clinical data available to the clinician. Xpert CT/NG performance has not been evaluated in patients less than 14 years of age. The assay should not be used for the evaluation of suspected sexual abuse or for other medico-legal indications. Additional testing is recommended in any circumstance when false positive or false negative results could lead to adverse medical, social or psychological consequences. NG PCR NOT DETECTED Not Detect. A not detected test result does not exclude the possibility of infection because test results can be affected by improper specimen collection, concurrent antibiotic therapy, or the number of organisms in the specimen which may be below the sensitivity of the test. As with many diagnostic tests, results from the Xpert CT/NG assay should be interpreted in conjunction with other laboratory and clinical data available to the clinician. Xpert CT/NG performance has not been evaluated in patients less than 14 years of age. The assay should not be used for the evaluation of suspected sexual abuse or for other medico-legal indications. Additional testing is recommended in any circumstance when false positive or false negative results could lead to adverse medical, social or psychological consequences. HIV Ab/Ag Reviewed date:05/12/2024 09:23:19 AM Interpretation: Performing Lab:[facility], [address] [place] [address], [place] [address] Notes/Report: HIV AB/AG Nonreactive Nonreactive HIV-1 p24 Ag and/or HIV-1/HIV-2 Ab not detected. A test result that is nonreactive does not exclude the possibility of exposure to or infection with HIV-1 and/or HIV-2. Nonreactive results in this assay for individuals with prior exposure to HIV-1 and/or HIV-2 may be due to antigen and antibody levels that are below the limit of detection of this assay. The [employer] HIV Ag/Ab Combo assay result and supplemental assay results should be interpreted in conjunction with the patient's clinical presentation, history and other laboratory results. If the results are inconsistent with clinical evidence, additional testing is suggested to confirm the result. REASON FOR VISIT needs new order for labs Social History Sex Assigned At : Social History Observation Description Sex Assigned At Male Encounters Encounter Location Date Provider Diagnosis Mahendra Dejesus III, MD [address] [place] [address] [address] [place] [address] 04/03/2024 Mahendra Dejesus HIV exposure Z20.6 ; Elevated PSA R97.20 and Exposure to STD Z20.2 Assessments Encounter Date Diagnosis (ICD Code) Assessment Notes Treatment Notes Treatment Clinical Notes 04/03/2024 HIV exposure (ICD-10 - Z20.6) 04/03/2024 Elevated PSA (ICD-10 - R97.20) 04/03/2024 Exposure to STD (ICD-10 - Z20.2) Plan Of Treatment Next Appt Details Provider Name:Mahendra Dejesus, 02/11/2025 04:00:00 PM, [address] [place] [address] [address], [place], [address], Progress Notes * Kal GARCIA MDOB: (43 yo M)Acc No.[id number]:04/03/2024 Patient:?Navneet Garcia :1980???Age:43 Y???Sex:Male Address:[address], [address], [place], [address] Subjective: * Chief Complaints: * ???Needs new order for labs * Medical History:? * Surgical History:? * Hospitalization/Major Diagno stic Procedure:? * Medications:? Objective: Assessment: * Assessment: 1.?HIV exposure - Z20.6?2.?E levated PSA - R97.20?3.?Exposure to STD - Z20.2? Plan: * Treatment: 2.?Elevated PSA?LAB: PSA, TOTAL ?LAB: RPR CARD TEST ?LAB: PSA Free and Total ?LAB: CT NG by PCR ?LAB: HIV Ab/Ag 3.?Exposure to STD?LAB: PSA, TOTAL ?LAB: RPR CARD TEST ?LAB: PSA Free and Total ?LAB: CT NG by PCR ?LAB: HIV Ab/Ag * Procedure Codes:? * true * Date:? Generated for Printi ng/Faxing/eTransmitting on:?10/27/2024 02:34 PM EDT
--- OUTSIDE RECORDS SUMMARY | 2024-10-27 14:35 | XMS_ITS | Patient Health Record ---
Author Organization Mahendra Dejesus III, MD Address [address] [place] [address] Care Team Providers Care Media Specialist Name Role Phone Mahendra Dejesus Primary Care Provider [phone] Allergies Allergen (clinical drug ingredient) Drug/Non Drug Allergy documented on EMR Reaction Allergy Type Onset Date Status No Known Drug Allergy Unknown Drug Allergy Active Results Component Value Reference Range Notes Complete Blood Count Auto Di ff Reviewed date:02/11/2024 02:05:02 PM Interpretation: Performing Lab:[facility], [address] [place] [phone] Notes/Report: White Blood Count 5.8 4.8-10.8 X10*3/uL Red Blood Count 4.95 4.60-5.80 X10*6/uL Hemoglobin 15.5 14.0-18.0 g/dl Hematocrit 43.2 42.0-52.0 % Mean Corpuscular Volume 87.3 80.0-98.0 fL Mean Corpuscular Hemoglobin 31.3 27.0-33.0 pg Mean Corpuscular HGB Conc 35.9 31.0-36.0 g/dl Red Cell Distribution Width 12.9 11.0-16.0 % Platelet Count 189 160-400 X10*3/uL Mean Platelet Volume 11.2 9.4-12.4 fL Neutrophils Percent Auto 60.7 45-73 % Imm Gran Pct Auto 0.3 0.0-0.4 % Lymphocytes Percent Auto 29.5 20-40 % Monocytes Percent Auto 8.1 2-11 % Eosinophils Percent Auto 0.9 0-4 % Basophils Percent Auto 0.5 0-2 % NRBC Pct Auto 0.0 0.0-0.2 /100WBC Neutrophils Absolute Auto 3.5 2.0-8.3 x10*3/uL Imm Gran Abs Auto 0.02 0.00-0.03 X10*3/uL Lymphocytes Absolute Auto 1.7 1.2-4.9 X10*3/uL Monocytes Absolute Auto 0.5 0.1-1.2 X10*3/uL Eosinophils Absolute Auto 0.1 0.0-0.4 X10*3/uL Basophils Absolute Auto 0.0 0.0-0.2 X10*3/uL NRBC Abs Auto 0.000 0.0-0.012 X10*3/uL Comprehensive Met. Panel Reviewed date:02/11/2024 02:05:02 PM Interpretation: Performing Lab:[address] [address] Notes/Report: Sodium 142 135-145 mmol/L Potassium 4.8 3.3-5.1 mmol/L Chloride 106 96-108 mmol/L Carbon Dioxide 28 22-29 mmol/L Anion Gap 13 12-20 Blood Urea Nitrogen 15 9-16 mg/dL Creatinine 0.88 0.5-1.4 mg/dL Estimated Glomerular Filt Rate > 60 NOTE: For -Tristanian individuals, multiply the result by 1.210. Chronic Kidney Disease: Estimated GFR < 60 mL/min/1.73m2 Severe Kidney Disease: Estimated GFR < 15 mL/min/1.73m2 Glucose Random 84 60-115 mg/dL Calcium 9.8 8.4-10.2 mg/dL Bilirubin Total 3.0 0.0-1.0 mg/dL Aspartate Amino Transferase 18 5-37 U/L Alanine Aminotransferase 14 0-40 U/L Total Protein 7.7 6.5-8.0 g/dL Albumin Level 4.8 3.5-5.0 g/dL Alkaline Phosphatase 40 39-117 U/L Lipid Panel Reviewed date:02/11/2024 02:05:02 PM Interpretation: Performing Lab:[address] [address] Notes/Report: Triglycerides 52 <150 mg/dL Desirable Triglyceride: less than 150 mg/dL Borderline High Triglyceride 150-199 mg/dL High Triglyceride: 200-499 mg/dL Very High Triglyceride: greater than or equal to 5OO mg/dL Cholesterol 169 <200 mg/dL Desirable Cholesterol: less than 200 mg/dL Borderline High Cholesterol: 200-239 mg/dL High Cholesterol: greater than 239 mg/dL LDL Cholesterol Calculated 95 <100 mg/dL Desirable LDL: less than 100 mg/dL Near Optimal/Above Optimal LDL: 110-129 mg/dL Borderline High LDL: 130-159 mg/dL High LDL: 160-189 mg/dL Very High LDL: greater than or equal to 190 mg/dL HDL Cholesterol 64 >40 mg/dL Desirable HDL: greater than 40 mg/dL Note: This HDL assay may give artificially low results in patients with liver disease. Prostate Specific Antigen Reviewed date:02/11/2024 02:05:02 PM Interpretation: Performing Lab:[address] [address] Notes/Report: Prostate Specific Antigen 4.88 <0.05-4.0 ng/mL PSA methodology: Lamar Alinity i Chemiluminescent Microparticle Immunoassay (CMIA) URINE DIP STICK Reviewed date:02/11/2024 03:35:43 PM Interpretation: Performing Lab: Notes/Report: SG 1.010 1.005 - 1.025 pH 7.0 5.0 - 9.0 PORTIA Negative Negative - NIT Negative Negative - PRO 15 Negative - Trace GLU Negative Negative - KET Negative Negative - UBG 0.2 0.1 - 1.8 JACKY Negative 0.2 - 1.3 BLD Negative Negative - Syphilis Screen Reviewed date:05/12/2024 09:23:19 AM Interpretation: Performing Lab:[address] [address] Notes/Report: Syphilis Screen Nonreactive Nonreactive PSA Free and Total Reviewed date:05/12/2024 09:23:19 AM Interpretation: Performing Lab:[address] [address] Notes/Report: Prostate Specific Ag Total 4.9 < OR = 4.0 ng/mL Percent Free Prostate Spec Ag 12 >25 % (calc) PSA(ng/mL) Free PSA(%) Estimated(x) Probability of Cancer(as%) 0-2.5 (*) Approx. 1 2.6-4.0(1) 0-27(2) 24(3) 4.1-10(4) 0-10 56 11-15 28 16-20 20 21-25 16 >or =26 8 >10(+) N/A >50 References:(1)Lloyd parmar et al.:Urology 60: 469-474 (2001) (2)Toshia et al.:J.Urol 168: 922-925 (2001) Free PSA(%) Sensitivity(%) Specificity(%) < or = 25 85 19 < or = 30 93 9 (3)Lloydona et al.:KACI 277: 4990-4535 (1996) (4)Catalona et al.:KACI 279: 1919-5815 (1997) (x)These estimates vary with age, ethnicity, [...] mind. PSA was performed using the Eugenia [place] Immunoassay method. Values obtained from different assay methods cannot be used interchangeably. PSA levels, regardless of value, should not be interpreted as absolute evidence of the presence or absence of disease. THIS TEST WAS PERFORMED AT: [facility] [address] [address] BENNY BLOOD MD Free Prostate Spec Ag 0.6 CT NG by PCR Reviewed date:05/12/2024 09:23:19 AM Interpretation: Performing Lab:[facility], [address] [place] [phone] Notes/Report: Urine CT PCR NOT DETECTED Not [...] Ab/Ag Reviewed date:05/12/2024 09:23:19 AM Interpretation: Performing Lab:[facility], [address] [place] [address] Notes/Report: HIV AB/AG Nonreactive Nonreactive HIV-1 p24 [...] limit of detection of this assay. The [employer] HIV Ag/Ab Combo assay result and supplemental assay results should be interpreted in conjunction with the patient's clinical presentation, history and other laboratory results. If the results are inconsistent with clinical evidence, additional testing is suggested to confirm the result. XR shoulder RT min 2V Reviewed date:05/12/2024 09:23:19 AM Interpretation: Performing Lab: Notes/Report: [address] [place] [address] XRay Report Signed Patient: Kal Oquendo#: [id number] : 1980 Acct:[id number] Age/Sex: 43 / M ADM Date: 05/08/24 Loc: HO. Attending Dr: Gracy LANDRY Ordering Physician: Gracy Mitchell Date of Service: 05/08/24 Procedure(s): XR shoulder RT min 2V Accession Number(s): [id number] cc: Mahendra Dejesus MD; Gracy Mitchell EXAMINATION: XR SHOULDER, RIGHT CLINICAL INFORMATION: pain and limited ROM COMPARISON: None available. TECHNIQUE: AP external rotation, Grashey, scapular Y, and axillary views of the right shoulder. FINDINGS: No acute fracture. The humeral head is well-seated within the glenoid fossa. The acromioclavicular joint is intact. The coracoid process and visualized scapula are intact. The acromiohumeral interval is normal. No evidence of soft tissue swelling. No abnormal calcifications or loose bodies. The visualized portions of the lungs are clear. Visualized ribs and clavicle are intact. XR/XR shoulder RT min 2V IMPRESSION: Normal right shoulder. Electronically signed by: Henrietta Marsh DO 05/08/2024 04:18 PM EDT Dictated By: Henrietta Marsh Signed By: <Electronically signed by Henrietta Marsh in OV> 05/08/24 1618 DD/ 1153 TD/TT: 05/08/24 1153 Portuguese Tutor: [place] [address] XRay Report Signed Patient: Kal Oquendo R#: [id number] : 1980 Acct:[id number] Age/Sex: 43 / M ADM Date: 05/08/24 Loc: HO. Attending Dr: Gracy LANDRY Ordering Physician: Gracy Mitchell Date of Service: 05/08/24 Procedure(s): XR shoulder RT min 2V Accession Number(s): [id number] cc: Mahendra Dejesus MD; Gracy Mitchell EXAMINATION: XR SHOULDER, RIGHT CLINICAL INFORMATION: pain and limited ROM COMPARISON: None available. TECHNIQUE: AP external rotation , Grashey, scapular Y, and axillary views of the right shoulder. FINDINGS: No acute fracture. T he humeral head is well-seated within the glenoid fossa. The acromioclavicular joint is intact. The coracoid process and visualized scapula a re intact. The acromiohumeral interval is normal. No evidence of soft tissue swelling. No abnormal calcifications or loose bodies. The visualized portions of the lungs are clear. Visualized ribs and clavicle are intact. X R/XR shoulder RT min 2V IMPRESSION: Normal right shoulder. Electronically frank d by: Henrietta Marsh DO 05/08/2024 04:18 PM EDT RP Dictated By: Henrietta Marsh Signed By: <Electronically signed by Henrietta Marsh in OV> 05/08/24 1618 DD/ 1153 TD/TT: 05/08/24 1153 Portuguese Tutor: PSA Free and Total Reviewed date:07/07/2024 05:41:58 AM Interpretation: Performing Lab:[facility], [address] [place] [phone] Notes/Report: Prostate Specific Ag Total 4.3 < OR = 4.0 ng/mL Percent Free Prostate Spec Ag 21 >25 % (calc) PSA(ng/mL) Free PSA(%) Estimated(x) Probability of Cancer(as%) 0-2.5 (*) Approx. 1 2.6-4.0(1) 0-27(2) 24(3) 4.1-10(4) 0-10 56 11-15 28 16-20 20 21-25 16 >or =26 8 >10(+) N/A >50 References:(1)Lloyd parmar et al.:Urology 60: 469-474 (2002) (2)Toshia et al.:J.Urol 168: 922-925 (2001) Free PSA(%) Sensitivity(%) Specificity(%) < or = 25 85 19 < or = 30 93 9 (3)Lloydona et al.:KACI 277: 9925-9391 (1996) (4)Catalona et al.:KACI 279: 2423-3963 (1998) (x)These estimates vary with age, ethnicity, family [...] mind. PSA was performed using the Eugenia Rixford Immunoassay method. Values obtained from different assay methods cannot be used interchangeably. PSA levels, regardless of value, should not be interpreted as absolute evidence of the presence or absence of disease. THIS TEST WAS PERFORMED AT: [facility] [address] [place] [phone] BENNY BLOOD MD Free Prostate Spec Ag 0.9 Reason For Referral No Information Immunizations Vaccine Route Administration Date Status Comme nts DTP Unknown 02/07/1983 Administered DTP Unknown 1982 Administered DTP Unknown 1982 Administered DTP Unknown 05/22/1984 Administered DTP Unknown 12/14/1987 Administered Td (adult) Unknown 10/21/1998 Administered IPV Unknown 1982 Administered IPV Unknown 1982 Administered IPV Unknown 02/01/1983 Administered IPV Unknown 05/22/1984 Administered IPV Unknown 12/14/1987 Administered MMR Unknown 10/25/1983 Administered MMR Unknown 12/08/1983 Administered MMR Unknown 02/16/1999 Administered Hepatitis B Unknown 06/19/2000 Administered Hepatitis B Unknown 05/02/2002 Administered COVID- 19 Vaccine Unknown 08/02/2021 Administered COVID- 19 Vaccine Unknown 07/04/2021 Administered Social History Tobacco Use: Social History Observation Description Date Details (start date - stop date) Former Smoker NA - NA Sex Assigned At : Social History Observation Description Sex Assigned At Male Tobacco Use/Smoking Question Answer Notes Patient is a former smoker How long has it been since you last smoked? > 10 years Additional Findings: Tobacco Non-User Ex-cigaret te smoker Alcohol Screen Question Answer Notes Did you have a drink containing alcohol in the p ast year? No Points 0 Interpretation Negative Problems Problem Type SNOMED Code ICD Code Onset Dates Problem Status W/U Status Risk Notes Problem 9915625 Former smoker (Z87.891) Active confirmed He is highly motivated not to smoke. We formulated a plan to prevent relapse in times of stress and illness. Problem Right knee pain ([id number] 4105) Right knee pain (M25.561) Active confirmed This pain has resolved and no longer bothers him. Problem Sciatica (11422368) Chronic low back pain with sciatica (M54.40) Active confirmed The pain is intermittent and mild. He is avoiding heavy lifting. Problem 060651894 Elevated PSA (R97.20) Active confirmed On a recent visit his PSA was [...] months when he returns in September 2024. Problem 906759766 Benign prostatic hyperplasia, unspecified whether lower urinary tract symptoms present (N40.0) Active confirmed Problem 4055830 Migraine with aura and without status migrainosus, not intractable (G43.109) Active confirmed These are infrequent and he has medication if necessary. Vital Signs Heart Rate 80 /min 07/07/2024 Temperature 97.0 degrees Fahrenheit 07/07/2024 Blood pressure diastolic 89 mm Hg 07/07/2024 Height 74 in in 07/07/2024 Blood pressure systolic 115 mm Hg 07/07/2024 Weight 188 lbs 07/07/2024 BMI 24.14 kg/m2 07/07/2024 Encounters Encounter Location Date Provider Diagnosis Mahendra Dejesus III, MD [address] [place] [address] [place] [address] 02/11/2024 Mahendra Dejesus Elevated PSA R97.20 ; Right knee pain M25.561 ; Chronic low back pain with sciatica M54.40 ; Former smoker Z87.891 ; Migraine with aura and without status migrainosus, not intractable G43.109 and Benign prostatic hyperplasia, unspecified whether lower urinary tract symptoms present N40.0 Mahendra Dejesus III, MD [address] [place] [address] [place] [address] 05/13/2024 Mahendra Dejesus Elevated PSA R97.20 ; Chronic low back pain with sciatica M54.40 ; Right knee pain M25.561 ; Former smoker Z87.891 ; Migraine with aura and without status migrainosus, not intractable G43.109 and Benign prostatic hyperplasia, unspecified whether lower urinary tract symptoms present N40.0 Mahendra Dejesus III, MD [address] [place] [address] [address] [place] [address] 07/07/2024 Mahendra Dejesus Elevated PSA R97.20 ; Right knee pain M25.561 ; Chronic low back pain with sciatica M54.40 ; Former smoker Z87.891 and Migraine with aura and without status migrainosus, not intractable G43.109 Mahendra Dejesus III, MD [address] [place] [address] [address] [place] [address] 04/03/2024 Mahendra Dejesus HIV exposure Z20.6 ; Elevated PSA R97.20 and Exposure to STD Z20.2 Assessments Encounter Date Diagnosis (ICD Code) Assessment Notes Treatment Notes Treatment Clinical Notes 02/11/2024 Right knee pain (ICD-10 - M25.561) This pain has resolved and no longer bothers him. 02/11/2024 Elevated PSA (ICD-10 - R97.20) His PSA is slightly elevated we'll 0.88. It will be repeated to see if it is rising. A free PSA will be ordered. He was quite concerned with this value. He requested to be screening for sexually transmitted diseases. 05/13/2024 Chronic low back pain with sciatica (ICD-10 - M54.40) The pain is intermittent and mild. He is avoiding heavy lifting. 05/13/2024 Elevated PSA (ICD-10 - R97.20) The PSA is slightly elevated but the free PSA is low at 12%. The PSA will be repeated in 3 months with a free PSA 07/07/2024 Right knee pain (ICD-10 - M25.561) This pain has resolved and no longer bothers him. 07/07/2024 Elevated PSA (ICD-10 - R97.20) On [...] months when he returns in September 2024. 02/11/2024 Chronic low back pain with sciatica (ICD-10 - M54.40) The pain is intermittent and mild. He is avoiding heavy lifting. 05/13/2024 Right knee pain (ICD-10 - M25.561) This pain has resolved and no longer bothers him. 07/07/2024 Chronic low back pain with sciatica (ICD-10 - M54.40) The pain is intermittent and mild. He is avoiding heavy lifting. 04/03/2024 HIV exposure (ICD-10 - Z20.6) 02/11/2024 Former smoker (ICD-10 - Z87.891) He is highly motivated not to smoke. We formulated a plan to prevent relapse in times of stress and illness. 05/13/2024 Former smoker (ICD-10 - Z87.891) He is highly motivated not to smoke. We formulated a plan to prevent relapse in times of stress and illness. 07/07/2024 Former smoker (ICD-10 - Z87.891) He is highly motivated not to smoke. We formulated a plan to prevent relapse in times of stress and illness. 04/03/2024 Elevated PSA (ICD-10 - R97.20) 02/11/2024 Migraine with aura and without status migrainosus, not intractable (ICD-10 - G43.109) These are infrequent and he has medication if necessary. 05/13/2024 Migraine with aura and without status migrainosus, not intractable (ICD-10 - G43.109) These are infrequent and he has medication if necessary. 07/07/2024 Migraine with aura and without status migrainosus, not intractable (ICD-10 - G43.109) These are infrequent and he has medication if necessary. 04/03/2024 Exposure to STD (ICD-10 - Z20.2) 02/11/2024 Benign prostatic hyperplasia, unspecified whether lower urinary tract symptoms present (ICD-10 - N40.0) 05/13/2024 Benign prostatic hyperplasia, unspecified whether lower urinary tract symptoms present (ICD-10 - N40.0) Plan Of Treatment Pending Test Test Name Order Date PROFILE, FASTING (COMPREHENSIVE METABOLI C) 07/07/2024 CBC w DIFF 07/07/2024 XR KNEE RT 4 VIEWS 06/15/2020 PSA Free and Total 07/07/2024 Next Appt Details Provider Name:Mahendra Dejesus, 02/11/2025 04:00:00 PM, [address] [place] [address] [address], [address], [place], [address], Insurance Providers Payer Name Payer Address Payer Phone Subscriber Number Group Number Insured Name Patient Relationship to Insured Coverage Start Date Coverage End Date [facility] [address] [place], [place] [id number] [phone] [id number] Kal Oquendo Self - patient is the insured Medical (General) History Medical History History ICD Code Chronic low back pain with sciatica M54. 40 Migraine headache G43.909 chronic right knee pain former smoker Surgical History Surgery Date(Month/Year) No history Hospitalization History Reason Date(Month/Year) No history
--- OUTSIDE RECORDS SUMMARY | 2024-10-27 14:35 | XMS_ITS ---
Author Organization Mahendra Dejesus III, MD Address [address] [place] [address] [place] [address] Care Team Providers Care Manager Pharmaceutical Name Role Phone Mahendra Dejesus Primary Care Provider Allergies Allergen (clinical drug ingredient) Drug/Non Drug Allergy documented on EMR Reaction Allergy Type Onset Date Status No Known Drug Allergy Unknown Drug Allergy Active REASON FOR VISIT Low back pain, Migraine, I discussed with Social History Tobacco Use: Social History Observation Description Date Details (start date - stop date) Former Smoker NA - NA Sex Assigned At : Social History Observation Description Sex Assigned At Male Tobacco Use/Smoking Question Answer Notes Patient is a former smoker How long has it been since you last smoked? > 10 years Additional Findings: Tobacco Non-User Ex-cigaret te smoker Vital Signs Height 74 in in 05/13/2024 Weight 186 lbs 05/13/2024 BMI 23.88 kg/m2 05/13/2024 Encounters Encounter Location Date Provider Diagnosis Mahendra Dejesus III, MD [address] [place] [address] [place] [address] 05/13/2024 Mahendra Dejesus Elevated PSA R97.20 ; Chronic low back pain with sciatica M54.40 ; Right knee pain M25.561 ; Former smoker Z87.891 ; Migraine with aura and without status migrainosus, not intractable G43.109 and Benign prostatic hyperplasia, unspecified whether lower urinary tract symptoms present N40.0 Assessments Encounter Date Diagnosis (ICD Code) Assessment Notes Treatment Notes Treatment Clinical Notes 05/13/2024 Elevated PSA (ICD-10 - R97.20) The PSA is slightly elevated but the free PSA is low at 12%. The PSA will be repeated in 3 months with a free PSA 05/13/2024 Chronic low back pain with sciatica (ICD-10 - M54.40) The pain is intermittent and mild. He is avoiding heavy lifting. 05/13/2024 Right knee pain (ICD-10 - M25.561) This pain has resolved and no longer bothers him. 05/13/2024 Former smoker (ICD-10 - Z87.891) He is highly motivated not to smoke. We formulated a plan to prevent relapse in times of stress and illness. 05/13/2024 Migraine with aura and without status migrainosus, not intractable (ICD-10 - G43.109) These are infrequent and he has medication if necessary. 05/13/2024 Benign prostatic hyperplasia, unspecified whether lower urinary tract symptoms present (ICD-10 - N40.0) Plan Of Treatment Next Appt Details Follow Up: 8 W, 8 weeks from now, Reason: F/U, Check-up and repeat blood test Provider Name:Mahendra Dejesus, 02/11/2025 04:00:00 PM, [address] [place] [address] DR, [address], [place], [address], Progress Notes * Kal GARCIA MDOB: (43 yo M)Acc No.[id number]:05/13/2024 Patient:?Navneet GARCIA Provider:?Mahendra Dejesus MD :1980???Age:43 Y???Sex:Male Bam e:05/13/2024 Address:[facility] [address], [place], [place] Subjective: * Chief Complaints: * ???Low back painMigraineI di scussed with * HPI: ???:?Telehealth?Location of provider rendering services:?{...} [address] [facility] [address] ?Location of patient:?address listed in demographics for today's visit ?Patient identification confirmed using:?Name, ?Telehealth method:?Telephone only. Patient not visible to care provider. ?Consent:?Patient verbally consented to treatment, Patient verbally consented to billing insurance company, Patient informed of any privacy concerns related to method of visit ?Total time spent with patient (mins)?15 ?Kal, a 43-year-old male patient, reported to Dr. Dejesus for a telephonic visit. The patient had undergone blood tests for sexually transmitted diseases, including syphilis, chlamydia, gonorrhea, and HIV, all of which returned negative results. The patient's Prostate-Specific Antigen (PSA) level was found to be 4.9, which is borderline between normal and abnormal. The free PSLE level was 12%. The patient also reported experiencing back problems.? His low back pain has improved and his right knee is no longer painful.? He is rising from sleep once or twice a night to urinate depending upon fluid intake.? We have reviewed lifestyle modification. * ROS:?General/Constitutional:?pain?only normal aches and pains.?Chills?denies.?Fatigue?admits.?Fever?denies.?ENT:?Decreased hearing?denies.?Respiratory:?Cough?denies.?Cardiovascular:?Chest pain with exertion?denies.?Dyspnea on exertion?denies.?Shortness of breath?denies.?Gastrointestinal:?Constipation?occasional.?Decreased appetite?denies.?Diarrhea?denies.?Heartburn?denies.?Nausea?denies.?Rectal bleeding?denies.?Vomiting?denies.?Hematology:?bruising?denies.?petechiae?denies.?Swollen glands?none have been noted.?Genitourinary:?Frequent urination?once a night.?Musculoskeletal:?Muscle aches?denies.?Painful joints?Knees and low back.?Sciatica?denies.?Weakness?denies.?Skin:?Itching?denies.?Rash?denies.?Skin lesion(s)?denies.?Neurologic:?Difficulty speaking?denies.?Dizziness?denies.?Headache?denies.?Low back pain?denies.?Psychiatric:?Depressed mood?denies.? * Medical [...] smoker ???He was born and raised in [place], [place]. He came to the [facility] 3 years ago. He lives in [facility] and has a significant other. He is working full-time At [employer] in [place] where he is required to wear a mask at times because of exposure to acetone. * Medications:?None * Allergies:?No Known Drug All ergyno[Allergies Verified] Objective: * Vitals:?Ht: 74 in, Wt: 186, BMI:23.88, Ht-cm: 187.96, Wt-k.37. * ???Past Orders: ???Imaging:XR shoulder RT mi n 2V (Order Date - 05/08/2024) (Performed Date - 05/08/2024) Lab:URINE DIP STICK * Collection Date 02/11/2024 12/15/2022 07/21/2020 Order Date 02/11/2024 12/15/2022 07/21/2020 SG 1.010 (Ref Range: 1.005 - 1.025) 1.010 (Ref Range: 1.005 - 1.025) 1.015 pH 7.0 (Ref Range: 5.0 - 9.0) 6.0 (Ref Range: 5.0 - 9.0) 7 PORTIA Negative (Ref Range: Negative -) Negative (Ref Range: Negative -) neg NIT Negative (Ref Range: Negative -) Negative (Ref Range: Negative -) neg PRO 15 (Ref Range: Negative - Trace) Negative (Ref Range: Negative - Trace) trace GLU Negative (Ref Range: Negative -) Negative (Ref Range: Negative -) normal KET Negative (Ref Range: Negative -) Negative (Ref Range: Negative -) neg UBG 0.2 (Ref Range: 0.1 - 1.8) 0.2 (Ref Range: 0.1 - 1.8) 1 JACKY Negative (Ref Range: 0.2 - 1.3) Negative (Ref Range: 0.2 - 1.3) neg BLD Negative (Ref Range: Negative -) Negative (Ref Range: Negative -) neg Menstrating NR N/A n/a ???Lab:Syphilis Screen (Order Date - 04/03/2024) (Collection Date & Time - 04/03/2024 03:25 PM)?ValueReference Range?Syphilis Screen NonreactiveNonreactive - ???Lab:HIV Ab/Ag (Order Date - 04/03/2024) (Collection Date & Time - 04/03/2024 03:25 PM)?ValueReference Range?HIV AB/AGNonreactiveNonreactive - ???Lab:CT NG by PCR (Order Date - 04/03/2024) (Collection Date & Time - 04/03/2024 03:23 PM)?ValueReference Range?CT PCRNOT DETECTEDNot Detect. -?NG PCRNOT DETECTEDNot Detect. - ???Lab:PSA Free and Total (Order Date - 04/03/2024) (Collection Date & Time - 04/03/2024 03:25 PM)?ValueReference Range?Prostate Specific Ag Total4.9A< OR = 4.0 - ng/mL?Percent Free Prostate Spec Ag12A>25 - % (calc)?Free Prostate Spec Ag0.6- ng/mL Assessment: * Assessment: 1.?Chronic low back pain wit h sciatica - M54.40 (Primary)???Notes :The pain is intermittent and mild. He is avoiding heavy lifting.???2.?Elevated PSA - R97.20???Notes :The PSA is slightly elevated but the free PSA is low at 12%.? The? PSA will be repeated in 3 months with a free PSA???3.?Right knee pain - M25.561???Notes :This pain has resolved and no longer bothers him.???4.?Former smoker - Z87.891???Notes :He is highly motivated not to smoke. We formulated a plan to prevent relapse in times of stress and illness.???5.?Migraine with aura and without status migrainosus, not intractable - G43.109???Notes :These are infrequent and he has medication if necessary.???6.?Benign prostatic hyperplasia, unspecified whether lower urinary tract symptoms present - N40.0??? Plan: * Treatment: * Procedure Codes:?12063 PHONE E/M BY PHYS 11-20 MIN * Preventive Medicine:? ??Counseling:?Smoking/Tobacco Use?Patient counseled on the dangers of tobacco use and urged to quit.?05/13/2024 * Follow Up:?8 W, 8 weeks from now (Reason: F/U, Check-up and repeat blood test) * Images: * Sign off status: Completed true * Provider:?Mahendra Dejesus MD Date:?04/16 Generated for Mik vasquez/Ruth/Juan on:?10/27/2024 02:35 PM EDT History and Physical Notes * HPI (History of Present Illness) Category Sub-Category Detail Notes Telehealth Location of [facility] rendering services:: {...} [address] [place] [address] Location of patient:: address listed in demographics for today's visit Patient identification confirmed using:: Name, Telehealth method:: Telephone only. Lesia ent not visible to care provider. Consent:: Patient verbally c onsented to treatment, Patient verbally consented to billing insurance company, Patient informed of any privacy concerns related to method of visit Total time spent with patient (mins): 15
== END 2024-10-27 13:36 | disposition home or self-care (01) ==
PROVIDERS: PCP Internal Medicine Medical Oncology; Referring Provider Physician Assistant; Visit Provider Nurse Practitioner Family
DX: M62.838 Other muscle spasm (principal); M54.2 Cervicalgia; M54.12 Radiculopathy, cervical region; M25.511 Pain in right shoulder; Y99.0 Civilian activity done for income or pay
CPT/HCPCS: 99204

== ENCOUNTER → 2024-10-27 12:41 | Outpatient (BNVA) | payer OTHER, SELFPAY | PROVIDERS: PCP Internal Medicine Medical Oncology; Referring Provider Physician Assistant; Visit Provider Nurse Practitioner Family | DX: M62.838 Other muscle spasm (principal); M54.2 Cervicalgia; M54.12 Radiculopathy, cervical region; M25.511 Pain in right shoulder | CPT/HCPCS: 99202 ==

== ENCOUNTER 2024-11-04 09:59 | Outpatient (REF) | payer OTHER, SELFPAY ==
--- NOTE | ~2024-11-04 | XR_ITS ---
EXAMINATION: XR CERVICAL SPINE CLINICAL INFORMATION: M62.838 - Other muscle spasm COMPARISON: None available. TECHNIQUE: 6 views of the cervical spine, inclusive of flexion and extension views, were obtained. FINDINGS: Craniocervical junction is intact. Mild endplate sclerosis C5-6 and C6-7 levels. Focal calcification in the anterior intervertebral disc C7-T1 level. Left neuroforamina narrowing C6-7 secondary to marginal osteophyte formation. No acute cortical disruption or gross malalignment. The upper airway is patent. No lytic or blastic lesions. XR/XR cervical spine 4V IMPRESSION: Mild spondylosis C5-6 and 7 levels with the probable left neuroforamina narrowing at C6-7. Electronically signed by: Sylvester Cash MD 11/05/2024 07:45 AM EDT
--- OUTSIDE RECORDS SUMMARY | 2024-11-04 11:22 | XMS_ITS ---
Author Organization Mahendra Dejesus III, MD Address [address] [place] [address] Care Team Providers Care Multifocal Lens Assembler Name Role Phone Mahendra Dejesus Primary Care Provider Results Component Value Reference Range Notes PSA Free and Total Reviewed date:05/12/2024 09:23:19 AM Interpretation: Performing Lab:[facility], [address] [place] [phone] Notes/Report: Prostate Specific Ag Total 4.9 < [...] 19 < or = 30 93 9 (3)Toshia et al.:KACI 277: 4024-9188 (1996) (4)Catalona et al.:KACI 279: 2484-0298 (1997) (x)These estimates vary with age, ethnicity, [...] mind. PSA was performed using the Eugenia [place] Immunoassay method. Values obtained from different assay methods cannot be used interchangeably. PSA levels, regardless of value, should not be interpreted as absolute evidence of the presence or absence of disease. THIS TEST WAS PERFORMED AT: [facility] [address] [address] BENNY BLOOD MD Free Prostate Spec Ag 0.6 CT NG by PCR Reviewed date:05/12/2024 09:23:19 AM Interpretation: Performing Lab:[facility], [address] [place] [phone] Notes/Report: Urine CT PCR NOT DETECTED Not [...] Reviewed date:05/12/2024 09:23:19 AM Interpretation: Performing Lab:[facility], [address] [place] [address], [place] [address] Notes/Report: HIV AB/AG Nonreactive Nonreactive HIV-1 p24 [...] limit of detection of this assay. The [employer] HIV Ag/Ab Combo assay result and supplemental [...] Date Provider Diagnosis Mahendra Dejesus III, MD [address] [place] [address] [address] [place] [address] 04/03/2024 Mahendra Dejesus HIV exposure Z20.6 ; Elevated PSA R97.20 and Exposure to STD Z20.2 Assessments Encounter Date Diagnosis (ICD Code) Assessment Notes Treatment Notes Treatment Clinical Notes 04/03/2024 HIV exposure (ICD-10 - Z20.6) 04/03/2024 Elevated PSA (ICD-10 - R97.20) 04/03/2024 Exposure to STD (ICD-10 - Z20.2) Plan Of Treatment Next Appt Details Provider Name:Mahendra Dejesus, 02/11/2025 04:00:00 PM, [address] [place] [address] [address], [place], [address], Progress Notes * Kal GARCIA MDOB: (43 yo M)Acc No.[id number]:04/03/2024 Patient:?Navneet Garcia :1980???Age:43 Y???Sex:Male Address:[address], [address], [place], [address] Subjective: * Chief Complaints: * ???Needs new [...] true * Date:? Generated for Printi ng/Faxing/eTransmitting on:?11/04/2024 11:21 AM EDT
--- OUTSIDE RECORDS SUMMARY | 2024-11-04 11:22 | XMS_ITS | Patient Health Record ---
Author Organization Mahendra Dejesus III, MD Address [address] [address] Care Team Providers Care Clinical Documentation Consultant Name Role Phone Mahendra Dejesus Primary Care Provider [phone] Allergies Allergen (clinical drug ingredient) Drug/Non Drug Allergy documented on EMR Reaction Allergy Type Onset Date Status No Known Drug Allergy Unknown Drug Allergy Active Results Component Value Reference Range Notes Complete Blood Count Auto Di ff Reviewed date:02/11/2024 02:05:02 PM Interpretation: Performing Lab:[facility], [address] [place] [address] Notes/Report: White Blood Count 5.8 4.8-10.8 X10*3/uL [...] Panel Reviewed date:02/11/2024 02:05:02 PM Interpretation: Performing Lab:[address] [address] Notes/Report: Sodium 142 135-145 mmol/L Potassium 4.8 3.3-5.1 mmol/L Chloride 106 96-108 mmol/L Carbon Dioxide 28 22-29 mmol/L Anion Gap 13 12-20 Blood Urea Nitrogen 15 9-16 mg/dL Creatinine 0.88 0.5-1.4 mg/dL Estimated Glomerular Filt Rate > 60 NOTE: For -Anguill[place] individuals, multiply the result by 1.210. Chronic [...] Panel Reviewed date:02/11/2024 02:05:02 PM Interpretation: Performing Lab:[address] [address] Notes/Report: Triglycerides 52 <150 mg/dL Desirable Triglyceride: [...] Antigen Reviewed date:02/11/2024 02:05:02 PM Interpretation: Performing Lab:[address] [address] Notes/Report: Prostate Specific Antigen 4.88 <0.05-4.0 ng/mL [...] Screen Reviewed date:05/12/2024 09:23:19 AM Interpretation: Performing Lab:[address] [address] Notes/Report: Syphilis Screen Nonreactive Nonreactive PSA Free and Total Reviewed date:05/12/2024 09:23:19 AM Interpretation: Performing Lab:[address] [address] Notes/Report: Prostate Specific Ag Total 4.9 < [...] 30 93 9 (3)Lloydona et al.:KACI 277: 8977-6338 (1996) (4)Catalona et al.:KACI 279: 0881-7770 (1997) (x)These estimates vary with age, ethnicity, [...] mind. PSA was performed using the Eugenia [place] Immunoassay method. Values obtained from different assay methods cannot be used interchangeably. PSA levels, regardless of value, should not be interpreted as absolute evidence of the presence or absence of disease. THIS TEST WAS PERFORMED AT: [facility] [address] [address] BENNY BLOOD MD Free Prostate Spec Ag 0.6 CT NG by PCR Reviewed date:05/12/2024 09:23:19 AM Interpretation: Performing Lab:[facility], [address] [place] [address] Notes/Report: Urine CT PCR NOT DETECTED Not [...] Ab/Ag Reviewed date:05/12/2024 09:23:19 AM Interpretation: Performing Lab:[facility], [address] [place] [address] Notes/Report: HIV AB/AG Nonreactive Nonreactive HIV-1 p24 [...] limit of detection of this assay. The [employer] HIV Ag/Ab Combo assay result and supplemental assay results should be interpreted in conjunction with the patient's clinical presentation, history and other laboratory results. If the results are inconsistent with clinical evidence, additional testing is suggested to confirm the result. XR shoulder RT min 2V Reviewed date:05/12/2024 09:23:19 AM Interpretation: Performing Lab: Notes/Report: [address] [place] [address] XRay Report Signed Patient: Kal Oquendo#: [id number] : 1980 Acct:[id number] Age/Sex: 43 / M ADM Date: 05/08/24 Loc: HO. Attending Dr: Gracy LANDRY Ordering Physician: Gracy Mitchell Date of Service: 05/08/24 Procedure(s): XR shoulder RT min 2V Accession Number(s): [id number] cc: Mahendra Dejesus MD; Gracy Mitchell EXAMINATION: [...] 05/08/24 1618 DD/ 1153 TD/TT: 05/08/24 1153 Ramp Supervisor: [place] [address] XRay Report Signed Patient: Kal Oquendo R#: [id number] : 1980 Acct:[id number] Age/Sex: 43 / M ADM Date: 05/08/24 Loc: HO. Attending Dr: Gracy LANDRY Ordering Physician: Gracy Mitchell Date of Service: 05/08/24 Procedure(s): XR shoulder RT min 2V Accession Number(s): [id number] cc: Mahendra Dejesus MD; Gracy Mitchell EXAMINATION: [...] 05/08/24 1618 DD/ 1153 TD/TT: 05/08/24 1153 Ramp Supervisor: PSA Free and Total Reviewed date:07/07/2024 05:41:58 AM Interpretation: Performing Lab:[facility], [address] [place] [address] Notes/Report: Prostate Specific Ag Total 4.3 < [...] 30 93 9 (3)Lloydona et al.:KACI 277: 3460-8775 (1996) (4)Catalona et al.:KACI 279: 1131-3734 (1998) (x)These estimates vary with age, ethnicity, [...] mind. PSA was performed using the Eugenia [place] Immunoassay method. Values obtained from different assay methods cannot be used interchangeably. PSA levels, regardless of value, should not be interpreted as absolute evidence of the presence or absence of disease. THIS TEST WAS PERFORMED AT: [facility] [address] [place] [address] BENNY BLOOD MD Free Prostate Spec Ag [...] Problem Status W/U Status Risk Notes Problem 3232312 Former smoker (Z87.891) Active confirmed He is highly motivated not to smoke. We formulated a plan to prevent relapse in times of stress and illness. Problem Right knee pain ([id number] 4105) Right knee pain (M25.561) Active confirmed This pain has resolved and no longer bothers him. Problem Sciatica (93762163) Chronic low back pain with sciatica (M54.40) Active confirmed The pain is intermittent and mild. He is avoiding heavy lifting. Problem 575091938 Elevated PSA (R97.20) Active confirmed On a [...] when he returns in September 2024. Problem 571724090 Benign prostatic hyperplasia, unspecified whether lower urinary tract symptoms present (N40.0) Active confirmed Problem 7156675 Migraine with aura and without status migrainosus, [...] Date Provider Diagnosis Mahendra Dejesus III, MD [address] [place] [address] [place] [address] 02/11/2024 Mahendra Dejesus Elevated PSA R97.20 ; Right knee pain M25.561 ; Chronic low back pain with sciatica M54.40 ; Former smoker Z87.891 ; Migraine with aura and without status migrainosus, not intractable G43.109 and Benign prostatic hyperplasia, unspecified whether lower urinary tract symptoms present N40.0 Mahendra Dejesus III, MD [address] [place] [address] [place] [address] 05/13/2024 Mahendra Dejesus Elevated PSA R97.20 ; Chronic low back pain with sciatica M54.40 ; Right knee pain M25.561 ; Former smoker Z87.891 ; Migraine with aura and without status migrainosus, not intractable G43.109 and Benign prostatic hyperplasia, unspecified whether lower urinary tract symptoms present N40.0 Mahendra Dejesus III, MD [address] [place] [address] [address] [place] [address] 07/07/2024 Mahendra Dejesus Elevated PSA R97.20 ; Right knee pain M25.561 ; Chronic low back pain with sciatica M54.40 ; Former smoker Z87.891 and Migraine with aura and without status migrainosus, not intractable G43.109 Mahendra Dejesus III, MD [address] [place] [address] [address] [place] [address] 04/03/2024 Mahendra Dejesus HIV exposure Z20.6 ; [...] Details Provider Name:Mahendra Dejesus, 02/11/2025 04:00:00 PM, [address] [place] [address] [address], [place], [address], Insurance Providers Payer Name Payer Address Payer Phone Subscriber Number Group Number Insured Name Patient Relationship to Insured Coverage Start Date Coverage End Date [facility] [address] [place], [place] [id number] Kal Oquendo Self - patient is the insured Medical (General) History Medical History History ICD Code Chronic low back pain with sciatica M54. 40 Migraine headache G43.909 chronic right knee pain former smoker Surgical History Surgery Date(Month/Year) No history Hospitalization History Reason Date(Month/Year) No history
--- OUTSIDE RECORDS SUMMARY | 2024-11-04 11:22 | XMS_ITS ---
Author Organization Mahendra Dejesus III, MD Address [address] [place] [address] [place] [address] Care Team Providers Care Clinical Trial Coordinator Name Role Phone Mahendra Dejesus Primary Care [...] Date Provider Diagnosis Mahendra Dejesus III, MD [address] [place] [address] [place] [address] 07/07/2024 Mahendra Dejesus Elevated PSA R97.20 ; [...] visit Provider Name:Mahendra Dejesus, 02/11/2025 04:00:00 PM, [address] [place] [address] [place] [address], [place], [address], Progress Notes * Kal GARCIA MDOB: (43 yo M)Acc No.[id number]:07/07/2024 Progress Notes Patient:?Navneet GARCIA r Mesha Provider:?Mahendra Dejesus MD :1980???Age:43 Y???Sex:Male Bam e:07/07/2024 Address:[facility] [address] [id number] Subjective: * Chief Complaints: * ???Review labs [...] smoker ???He was born and raised in [place], [place]. He came to the [facility] 3 years ago. He lives in [facility] and has a significant other. He is working full-time At [employer] in [place] where he is required to wear a [...] Provider:?Mahendra Dejesus MD Date:?06/16 Generated for Mik vasquez/Ruth/Colinsmitting on:?11/04/2024 11:22 AM EDT History and Physical Notes * HPI [...]
--- OUTSIDE RECORDS SUMMARY | 2024-11-04 11:22 | XMS_ITS ---
Author Organization Mahendra Dejesus III, MD Address [address] [place] [address] [place] [address] Care Team Providers Care Box Office Agent Name Role Phone Mahendra Dejesus Primary Care [...] Date Provider Diagnosis Mahendra Dejesus III, MD [address] [place] [address] [place] [address] 05/13/2024 Mahendra Dejesus Elevated PSA R97.20 ; [...] test Provider Name:Mahendra Dejesus, 02/11/2025 04:00:00 PM, [address] [place] [address] [address], [place], [address], Progress Notes * Kal GARCIA MDOB: (43 yo M)Acc No.[id number]:05/13/2024 Patient:?Navneet GARCIA Provider:?Mahendra Dejesus MD :1980???Age:43 Y???Sex:Male Bam e:05/13/2024 Address:[facility] [address], [place], [place] Subjective: * Chief Complaints: * ???Low back painMigraineI di scussed with * HPI: ???:?Telehealth?Location of provider rendering services:?{...} [address] [facility] [address] ?Location of patient:?address listed in demographics for [...] smoker ???He was born and raised in [place], [place]. He came to the [facility] 3 years ago. He lives in [facility] and has a significant other. He is working full-time At [employer] in [place] where he is required to wear a [...] - N40.0??? Plan: * Treatment: * Procedure Codes:?95212 PHONE E/M BY PHYS 11-20 MIN * Preventive Medicine:? ??Counseling:?Smoking/Tobacco Use?Patient counseled on the dangers of tobacco use and urged to quit.?05/13/2024 * Follow Up:?8 W, 8 weeks from now (Reason: F/U, Check-up and repeat blood test) * Images: * Sign off status: Completed true * Provider:?Mahendra Dejesus MD Date:?04/16 Generated for Mik vasquez/Ruth/Juan on:?11/04/2024 11:22 AM EDT History and Physical Notes * HPI (History of Present Illness) Category Sub-Category Detail Notes [facility] {...} [address] [place] [address] Location of patient:: address listed in demographics [...]
== END 2024-11-04 10:00 | disposition home or self-care (01) ==
LOC: HO.XRAY 09:59
PROVIDERS: PCP Internal Medicine Medical Oncology; Visit Provider Nurse Practitioner Family
DX: M62.838 Other muscle spasm (principal); M54.2 Cervicalgia; M54.12 Radiculopathy, cervical region
CPT/HCPCS: 72050

== ENCOUNTER → 2024-11-04 10:05 | Outpatient (BNV) | payer OTHER, SELFPAY | PROVIDERS: PCP Internal Medicine Medical Oncology; Visit Provider Radiology Diagnostic Radiology | DX: M62.838 Other muscle spasm (principal); M25.78 Osteophyte, vertebrae; M47.892 Other spondylosis, cervical region | CPT/HCPCS: 72050 ==

== ENCOUNTER 2024-11-14 19:49 | Outpatient (REF) | payer OTHER, SELFPAY ==
--- NOTE | ~2024-11-14 | MR_ITS ---
EXAMINATION: MR SHOULDER, RIGHT CLINICAL INFORMATION: Right shoulder pain, from repetitive motion at work; clicking/crepitus with movement, reduced range of motion. COMPARISON: No prior MRI. Right shoulder radiographs 05/08/2024 TECHNIQUE: Multiplanar multisequence MR imaging of the right shoulder was done without IV contrast. Examination performed on a 1.5 Fadumo Siemens unit utilizing standard sequences. FINDINGS: Rotator Cuff and Biceps Tendon: Supraspinatus: Within the anterior most tendon, there is a small rim rent type tear of the bursal aspect of the lateral footplate insertion, measuring approximately 3 mm in thickness by 7 mm in length (series 14, image 15; series 12, image 24). Addition, there is a partial focal tear of the undersurface of the tendon in the critical zone (series 14, image 15) approximately 30% tendinous thickness. There is increased signal within the critical zone of the tendon consistent with tendinopathy. The tendon is otherwise intact without full-thickness tearing or tendinous retraction. Muscle belly is normal. Infraspinatus: There is increased undersurface signal within the critical zone of the tendon (series 12, image 24) likely representing tearing/fraying, approximately 30% thickness of the tendon undersurface. There is mild associated tendinopathy of the tendon. The tendon is otherwise intact and normal in signal. Normal muscle belly. Subscapularis: Appears intact and normal in signal without discrete tear. Normal muscle belly. Teres Minor: Appears intact and normal in signal. There is no discrete tear. Normal muscle belly. Biceps Long Head: Normally located within the bicipital groove. Normal morphology of the tendon. The tendon within the rotator interval is normal. The anchor appears intact. AC Joint and Acromiohumeral Arch: The AC joint is intact. There is very mild degenerative arthritis with minimal superior surface spurring, minimal periarticular edema, and minimal joint capsular distention. There is no significant undersurface spurring. There is a type II acromion present with no undersurface spurs. Glenohumeral Joint and Labrum: Labrum appears grossly intact without displaced tear seen. The glenohumeral joint appears normal without significant degenerative change or cartilaginous defect. There are no foci of subchondral bone plate edema. There is normal joint fluid. Osseous Structures: There is no gross bone marrow edema to suggest fracture or contusion. There is no evidence of abnormal infiltrating bone marrow signal. Spino-glenoid Notch: Normal. Quadrilateral Space: Normal. Other: There is increased signal and trace fluid in the subacromial/subdeltoid bursa consistent with bursitis. The glenohumeral ligaments appear intact without thickening. MR/MR shoulder RT wo con IMPRESSION: 1. There is subtle bursal surface rim rent tearing and approximately 30% undersurface tearing of the anterior fibers of the supraspinatus tendon. There is associated supraspinatus tendinopathy. No full-thickness tear or tendinous retraction. 2. There is a subtle approximately 30% undersurface tear of the mid fibers of the infraspinatus tendon, with associated tendinopathy of the tendon. There is no full-thickness tear or tendinous retraction. 3. The subscapularis and teres minor tendons are intact and normal in signal. 4. There is mild to moderate subacromial/subdeltoid bursitis. 5. The glenoid labrum appears grossly intact without displaced tear. 6. Minimal degenerative arthritis of the AC joint with no significant undersurface spurring. Electronically signed by: Rainer Navarro MD 11/17/2024 08:39 AM EDT
--- OUTSIDE RECORDS SUMMARY | 2024-11-14 19:53 | XMS_ITS | Clinical Summary ---
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 0 Active ibuprofen (ADVIL,MOTRIN) 200 MG tablet Take 200 mg by mouth every 6 hours as needed. 0 Active naproxen (NAPROSYN) 500 MG tablet Take 1 Tab by mouth 2 times daily (with meals) for 360 days. 60 Tab 1 01/29/2020 Active Active Problems Problem Noted Date History of head injury Family History Medical History Relation Name Comments Hypertension Mother Migraines Mother No Known Problems Sister 1 No Known Problems Sister 2 No Known Problems Sister 3 No Known Problems Sister 4 No Known Problems Sister 5 No Known Problems Sister 6 Relation Name Status Comments Father Maternal Grandfather Maternal Grandmother Alive Mother Alive Paternal Grandfather Paternal Grandmother Sister 1 Alive Sister 2 Alive Sister 3 Alive Sister 4 Alive Sister 5 Alive Sister 6 Alive Social History Tobacco Use Types Packs/Day Years [...] Recorded Male 05/25/2020 8:[address] Last Filed Vital Signs Vital Sign Reading Time Taken Comments Blood Pressure 104/70 01/29/2020 1:33 PM EDT Pulse 98 01/29/2020 1:33 PM EDT Temperature 36.6 ??C (97.9 ??F) 01/29/2020 1:33 PM ED T Respiratory Rate 16 01/29/2020 1:33 PM EDT Oxygen Saturation - - Inhaled Oxygen Concentration - - Weight 84.8 kg (187 lb) 01/29/2020 1:33 PM EDT Height 188 cm (6' 2 ) 01/29/2020 1:33 PM EDT Body Mass Index 24.01 01/29/2020 1:33 PM EDT Plan of Treatment Health Maintenance Due Date Last Done Comments Covid-19 Vaccine (#1) 01/22/1983 DTAP/TDAP/TD (1 - Tdap) 2001 CHOLESTEROL SCREENING 2002 BASELINE HEALTH EXAM 40-64 2022 INFLUENZA (Season Ended) 2025 PNEUMOCOCCAL VACCINE FOR HIGH RISK PATIENTS (#1) 07/25 Care Teams Knitting Machine Operator Helper Relationship Specialty Start Date End Date Issac Love MD PCP - General Internal Medicine 10/30/19
--- OUTSIDE RECORDS SUMMARY | 2024-11-14 19:53 | XMS_ITS ---
Author Organization Mahendra Dejesus III, MD Address [address] [place] [address] [place] [address] Care Team Providers Care Crankshaft Straightener Name Role Phone Mahendra Dejesus Primary Care [...] Date Provider Diagnosis Mahendra Dejesus III, MD [address] [place] [address] [place] [address] 07/07/2024 Mahendra Dejesus Elevated PSA R97.20 ; [...] visit Provider Name:Mahendra Dejesus, 02/11/2025 04:00:00 PM, [address] [place] [address] [place] [address], [place], [address], Progress Notes * Kal GARCIA MDOB: (43 yo M)Acc No.[id number]:07/07/2024 Progress Notes Patient:?Navneet GARCIA r Mesha Provider:?Mahendra Dejesus MD :1980???Age:43 Y???Sex:Male Bam e:07/07/2024 Address:[facility] [address] [id number] Subjective: * Chief Complaints: * ???Review labs [...] smoker ???He was born and raised in [place], [place]. He [facility]. He lives in [facility] and has a significant other. He is working full-time At [employer] in [place] where he is required to wear a [...] Dejesus MD Date:?06/16 Generated for Mik vasquez/Ruth/eTvladimirsmitting on:?11/14/2024 07:53 PM EDT History and Physical Notes * [...]
--- OUTSIDE RECORDS SUMMARY | 2024-11-14 19:53 | XMS_ITS ---
Author Organization Mahendra Dejesus III, MD Address [address] [place] [address] [place] [address] Care Team Providers Care Automatic Car Wash Attendant Name Role Phone Mahendra Dejesus Primary Care Provider [phone] Allergies Allergen (clinical drug ingredient) Drug/Non Drug [...] Date Provider Diagnosis Mahendra Dejesus III, MD [address] [place] [address] [place] [address] 05/13/2024 Mahendra Dejesus Elevated PSA R97.20 ; [...] test Provider Name:Mahendra Dejesus, 02/11/2025 04:00:00 PM, [address] [place] [address] [address], [address], [place], [address], Progress Notes * Kal GARCIA MDOB: (43 yo M)Acc No.[id number]:05/13/2024 Patient:?Navneet GARCIA Provider:?Mahendra Dejesus MD :1980???Age:43 Y???Sex:Male Bam e:05/13/2024 Address:[facility] [address], [place], [place] Subjective: * Chief Complaints: * ???Low back painMigraineI di scussed with * HPI: ???:?Telehealth?Location of provider rendering services:?{...} [address] [facility] [address] ?Location of patient:?address listed in demographics for [...] smoker ???He was born and raised in [place], [place]. He came to the [facility] 3 years ago. He lives in [facility] and has a significant other. He is working full-time At [employer] in [place] where he is required to wear a [...] - N40.0??? Plan: * Treatment: * Procedure Codes:?92226 PHONE E/M BY PHYS 11-20 MIN * Preventive Medicine:? ??Counseling:?Smoking/Tobacco Use?Patient counseled on the dangers of tobacco use and urged to quit.?05/13/2024 * Follow Up:?8 W, 8 weeks from now (Reason: F/U, Check-up and repeat blood test) * Images: * Sign off status: Completed true * Provider:?Mahendra Dejesus MD Date:?04/16 Generated for Mik vasquez/Ruth/Juan on:?11/14/2024 07:53 PM EDT History and Physical Notes * HPI (History of Present Illness) Category Sub-Category Detail Notes Telehealth Location of [facility] rendering services:: {...} [address] [place] [id number] Location of patient:: address listed in demographics [...]
--- OUTSIDE RECORDS SUMMARY | 2024-11-14 19:54 | XMS_ITS | Encounter Summary ---
Author Organization [facility] Address [address] [place] [address] Care Team Providers Care Biometrics Head Name Role Phone Issac Love MD Primary Care Provider Frieda lopez Encounter Details Date Type Department Care Team Description [facility] [address] [place] [address] [address] Leonie Social History Tobacco Use Types Packs/Day Years [...] on filedocumented in this encounter Care Teams Biometrics Head Relationship Specialty Start Date End Date Issac Love MD PCP - General Internal Medicine 10/30/19 documented as of this encounter
--- OUTSIDE RECORDS SUMMARY | 2024-11-14 19:54 | XMS_ITS | Patient Health Record ---
Author Organization Mahendra Dejesus III, MD Address [address] [facility] [address] [place] [address] Care Team Providers Care Plaster Machine Tender Name Role Phone Mahendra Dejesus Primary Care Provider [phone] Allergies Allergen (clinical drug ingredient) Drug/Non Drug Allergy documented on EMR Reaction Allergy Type Onset Date Status No Known Drug Allergy Unknown Drug Allergy Active Results Component Value Reference Range Notes Complete Blood Count Auto Di ff Reviewed date:02/11/2024 02:05:02 PM Interpretation: Performing Lab:[facility], [address] [place] [address] Notes/Report: White Blood Count 5.8 4.8-10.8 X10*3/uL [...] Panel Reviewed date:02/11/2024 02:05:02 PM Interpretation: Performing Lab:[address] [address] Notes/Report: Sodium 142 135-145 mmol/L Potassium 4.8 3.3-5.1 mmol/L Chloride 106 96-108 mmol/L Carbon Dioxide 28 22-29 mmol/L Anion Gap 13 12-20 Blood Urea Nitrogen 15 9-16 mg/dL Creatinine 0.88 0.5-1.4 mg/dL Estimated Glomerular Filt Rate > 60 NOTE: For -Somali individuals, multiply the result by 1.210. Chronic [...] Panel Reviewed date:02/11/2024 02:05:02 PM Interpretation: Performing Lab:[address] [address] Notes/Report: Triglycerides 52 <150 mg/dL Desirable Triglyceride: [...] Antigen Reviewed date:02/11/2024 02:05:02 PM Interpretation: Performing Lab:[address] [address] Notes/Report: Prostate Specific Antigen 4.88 <0.05-4.0 ng/mL [...] Screen Reviewed date:05/12/2024 09:23:19 AM Interpretation: Performing Lab:[address] [address] Notes/Report: Syphilis Screen Nonreactive Nonreactive PSA Free and Total Reviewed date:05/12/2024 09:23:19 AM Interpretation: Performing Lab:[address] [address] Notes/Report: Prostate Specific Ag Total 4.9 < [...] 30 93 9 (3)Lloydona et al.:KACI 277: 3570-0765 (1996) (4)Catalona et al.:KACI 279: 0044-0922 (1997) (x)These estimates vary with age, ethnicity, [...] mind. PSA was performed using the Eugenia Cheryl Immunoassay method. Values obtained from different assay methods cannot be used interchangeably. PSA levels, regardless of value, should not be interpreted as absolute evidence of the presence or absence of disease. THIS TEST WAS PERFORMED AT: [facility] [address] [address] BENNY BLOOD MD Free Prostate Spec Ag 0.6 CT NG by PCR Reviewed date:05/12/2024 09:23:19 AM Interpretation: Performing Lab:[facility], [address] [place] [address] Notes/Report: Urine CT PCR NOT DETECTED Not [...] Ab/Ag Reviewed date:05/12/2024 09:23:19 AM Interpretation: Performing Lab:[facility], [address] [place] [phone] Notes/Report: HIV AB/AG Nonreactive Nonreactive HIV-1 p24 [...] limit of detection of this assay. The Proxima Cancion HIV Ag/Ab Combo assay result and supplemental assay results should be interpreted in conjunction with the patient's clinical presentation, history and other laboratory results. If the results are inconsistent with clinical evidence, additional testing is suggested to confirm the result. XR shoulder RT min 2V Reviewed date:05/12/2024 09:23:19 AM Interpretation: Performing Lab: Notes/Report: [address] [place] [address] XRay Report Signed Patient: Kal Oquendo#: [id number] : 1980 Acct:[id number] Age/Sex: 43 / M ADM Date: 05/08/24 Loc: HO. Attending Dr: Gracy LANDRY Ordering Physician: Gracy Mitchell Date of Service: 05/08/24 Procedure(s): XR shoulder RT min 2V Accession Number(s): [id number] cc: Mahendra Dejesus MD; Gracy Mitchell EXAMINATION: [...] 05/08/24 1618 DD/ 1153 TD/TT: 05/08/24 1153 Filler Feeder: [place] [address] XRay Report Signed Patient: Kal Oquendo R#: [id number] : 1980 Acct:[id number] Age/Sex: 43 / M ADM Date: 05/08/24 Loc: HO. Attending Dr: Gracy LANDRY Ordering Physician: Gracy Mitchell Date of Service: 05/08/24 Procedure(s): XR shoulder RT min 2V Accession Number(s): [id number] cc: Mahendra Dejesus MD; Gracy Mitchell EXAMINATION: [...] 05/08/24 1618 DD/ 1153 TD/TT: 05/08/24 1153 Filler Feeder: PSA Free and Total Reviewed date:07/07/2024 05:41:58 AM Interpretation: Performing Lab:[facility], [address] [place] [phone] Notes/Report: Prostate Specific Ag Total 4.3 < [...] 30 93 9 (3)Lloydona et al.:KACI 277: 3182-1518 (1996) (4)Catalona et al.:KACI 279: 1132-6619 (1998) (x)These estimates vary with age, ethnicity, [...] mind. PSA was performed using the Eugenia [place] Immunoassay method. Values obtained from different assay methods cannot be used interchangeably. PSA levels, regardless of value, should not be interpreted as absolute evidence of the presence or absence of disease. THIS TEST WAS PERFORMED AT: [facility] [address] [place] [phone] BENNY BLOOD MD Free Prostate Spec Ag 0.9 XR cervical spine 4V (Not ye t reviewed by provider) Interpretation: Performing Lab: Notes/Report: [address] [address] XRay Report Signed Patient: Kal Oquendo R#: [id number] : 1980 Acct:[id number] Age/Sex: 44 / M ADM Date: 11/04/24 Loc: [facility] Attending Dr: Silvia METCALF- Ordering Physician: Maria Guadalupe Norton Date of Service: 11/04/24 Procedure(s): XR cervical spine 4V Accession Number(s): [id number] cc: Maria Guadalupe Norton; Mahendra Dejesus MD EXAMINATION: XR CERVICAL SPINE CLINICAL INFORMATION: M62.838 - Other muscle spasm COMPARISON: None available. TECHNIQUE: 6 views of the cervical spine, inclusive of flexion and extension views, were obtained. FINDINGS: Craniocervical junction is intact. Mild endplate sclerosis C5-6 and C6-7 levels. Focal calcification in the anterior intervertebral disc C7-T1 level. Left neuroforamina narrowing C6-7 secondary to marginal osteophyte formation. No acute cortical disruption or gross malalignment. The upper airway is patent. No lytic or blastic lesions. XR/XR cervical spine 4V IMPRESSION: Mild spondylosis C5-6 and 7 levels with the probable left neuroforamina narrowing at C6-7. Electronically signed by: Sylvester Cash MD 11/05/2024 07:45 AM EDT RP Dictated By: Sylvester Magallanes MD Signed By: <Electronically signed by Sylvester Jalloh MD in [place]> 11/05/24 0745 DD/ 1005 TD/TT: 11/04/24 1019 Filler Feeder: [address] [address] XRay Report Signed Patient: Kal Oquendo#: [id number] : 1980 Acct:[id number] Age/Sex: 44 / M ADM Date: 11/04/24 Loc: [facility] Attending Dr: Silvia METCALF- Ordering Physician: Maria Guadalupe Norton Date of Service: 11/04/24 Procedure(s): XR cervical spine 4V Accession Number(s): [id number] cc: Maria Guadalupe Norton VISCOSITY TESTER; Mahendra Dejesus MD EXAMINATION: XR CERVICAL SPINE CLINICAL INFORMATION: M62.838 - Other musc le spasm COMPARISON: None available. TECHNIQUE: 6 views of the cervi lucy spine, inclusive of flexion and extension views, were obtained. FINDINGS: Craniocervical junct ion is intact. Mild endplate sclerosis C5-6 and C6-7 levels. Focal calcification in the anterior intervertebral disc C7-T1 level. Left neuroforamina narrowing C6-7 secondary to marginal osteophyte formation. No acute cortical disruption or gross malalignment. The upper airway is patent. No lytic or blastic lesions. X R/XR cervical spine 4V IMPRESSION: Mild spondylosis C5- 6 and 7 levels with the probable left neuroforamina narrowing at C6-7. Electronically frank d by: Sylvester Cash MD 11/05/2024 07:45 AM EDT RP Dictated By: Sylvester Retana MD Signed By: <Electronically signed by Sylvester Jalloh MD in [place]> 11/05/24 0745 DD/ 1005 TD/TT: 11/04/24 1019 Filler Feeder: Reason For Referral No Information Immunizations Vaccine [...] Problem Status W/U Status Risk Notes Problem 9127242 Former smoker (Z87.891) Active confirmed He is highly motivated not to smoke. We formulated a plan to prevent relapse in times of stress and illness. Problem Right knee pain ([id number] 4105) Right knee pain (M25.561) Active confirmed This pain has resolved and no longer bothers him. Problem Sciatica (96648162) Chronic low back pain with sciatica (M54.40) Active confirmed The pain is intermittent and mild. He is avoiding heavy lifting. Problem 721903613 Elevated PSA (R97.20) Active confirmed On a [...] when he returns in September 2024. Problem 932001957 Benign prostatic hyperplasia, unspecified whether lower urinary tract symptoms present (N40.0) Active confirmed Problem 3960065 Migraine with aura and without status migrainosus, [...] Date Provider Diagnosis Mahendra Dejesus III, MD [address] [place] [address] [place] [address] 02/11/2024 Mahendra Dejesus Elevated PSA R97.20 ; Right knee pain M25.561 ; Chronic low back pain with sciatica M54.40 ; Former smoker Z87.891 ; Migraine with aura and without status migrainosus, not intractable G43.109 and Benign prostatic hyperplasia, unspecified whether lower urinary tract symptoms present N40.0 Mahendra Dejesus III, MD [address] [place] [address] [place] [address] 05/13/2024 Mahendra Dejesus Elevated PSA R97.20 ; Chronic low back pain with sciatica M54.40 ; Right knee pain M25.561 ; Former smoker Z87.891 ; Migraine with aura and without status migrainosus, not intractable G43.109 and Benign prostatic hyperplasia, unspecified whether lower urinary tract symptoms present N40.0 Mahendra Dejesus III, MD [address] [place] [address] [place] [address] 07/07/2024 Mahendra Dejesus Elevated PSA R97.20 ; Right knee pain M25.561 ; Chronic low back pain with sciatica M54.40 ; Former smoker Z87.891 and Migraine with aura and without status migrainosus, not intractable G43.109 Mahendra Dejesus III, MD [address] [place] [address] [place] [address] 04/03/2024 Mahendra Dejesus HIV exposure Z20.6 ; [...] VIEWS 06/15/2020 PSA Free and Total 07/07/2024 XR cervical spine 4V 11/04/2024 Next Appt Details Provider Name:Mahendra Dejesus, 02/11/2025 04:00:00 PM, [address] [place] [address] [address], [place], [address], Insurance Providers Payer Name Payer Address Payer Phone Subscriber Number Group Number Insured Name Patient Relationship to Insured Coverage Start Date Coverage End Date [facility] [address] [place], [place] [id number] Kal Oquendo Self - patient is the insured Medical (General) History Medical History History ICD Code Chronic low back pain with sciatica M54. 40 Migraine headache G43.909 chronic right knee pain former smoker Surgical History Surgery Date(Month/Year) No history Hospitalization History Reason Date(Month/Year) No history
== END 2024-11-14 19:50 | disposition home or self-care (01) ==
LOC: HO.MRI 19:49
PROVIDERS: PCP Internal Medicine Medical Oncology; Visit Provider Nurse Practitioner Family
DX: M25.511 Pain in right shoulder (principal); Y99.0 Civilian activity done for income or pay
CPT/HCPCS: 73221

== ENCOUNTER → 2024-11-14 19:59 | Outpatient (BNV) | payer OTHER, SELFPAY | PROVIDERS: PCP Internal Medicine Medical Oncology; Visit Provider Radiology Diagnostic Radiology | DX: M75.51 Bursitis of right shoulder (principal) | CPT/HCPCS: 73221 ==

== ENCOUNTER 2025-01-13 08:41 | Outpatient (AMB) | payer OTHER, SELFPAY ==
[2025-01-13 08:47] VITALS: BMI 24.3
--- NOTE | 2025-01-13 08:47 | MHC.OFFVIS ---
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 The patient states he continues to work. He denies any weakness in his shoulder. 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 He also reports intermittent neck pain which radiates to his right shoulder blade. He continues with his physical therapy exercises. He does not take any medicines on a daily basis for his discomfort. He wishes to hold off on a cortisone injection if at all possible. Senior Oracle Adf Developer Required: Yes Senior Oracle Adf Developer Language: Package Line Operator Services: Senior Oracle Adf Developer Present Senior Oracle Adf Developer Name: MayoDONAVAN/VAIBHAV Allergies No Known Allergies Allergy (Verified 10/27/24 13:00) Medication List - Last Reconciled 01/13/25 by Carlos Rowe MD camphor-methyl salicyl-menthol 3.1 %-10 %-6 % (large) (Salonpas) 1 patch topical BID PRN 30 days cyclobenzaprine 10 mg PO .qhs PRN gabapentin 300 mg PO DAILY 30 days [facility] Medical History (Updated 11/17/24 @ 15:08 by TEA Jernigan) Migraine headache Patellofemoral pain syndrome of right knee Social History Alcohol intake: current Alcohol intake frequency: holidays/special occasions only Patient Tobacco Use Status: Never used Tobacco Current occupational status: employed 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 Physical Exam Vital Signs: BMI result Body Mass Index 24.3 Extrem Other: Right shoulder examination shows almost full range of motion when compared to his left shoulder, 5/5 strength with supraspinatus testing, positive impingement signs, no instability Results Reviewed Results Reviewed: MRI of the patient's right shoulder shows a small area of edema measuring approximately 2-3 mm in width at the supraspinatus insertion consistent with rotator cuff tendinosis versus a small partial-thickness tear, no full-thickness tear noted Assessment & Plan Assessment & Plan (1) Right shoulder pain: Code(s): M25.511 - Pain in right shoulder Category: Medical Plan Kal presents with right shoulder pain due to impingement syndrome and rotator cuff tendinosis versus possible small partial-thickness tearing. I had a lengthy discussion with the patient regarding the treatment options. He wishes to hold off on a cortisone injection for now. He will continue with his activity modifications. He will follow up with me on an as-needed basis should his symptoms worsen in way. I did refer him to the pain management department here at [facility] for further evaluation of his neck pain. I spent 20 minutes in reviewing the patient's records and imaging studies, seeing the patient and documenting in the medical record. Orders: Referrals Pain Management Referral M54.2 - Cervicalgia Coding Level of Care Code New Pt Level 3 (81341) Complex EM visit Add On G2211 Diagnoses Right shoulder pain M25.511
--- OUTSIDE RECORDS SUMMARY | 2025-01-13 08:49 | XMS_ITS | Encounter Summary ---
Author Organization [facility] Address [address] [place] [address] Care Team Providers Care Administration Professional Name Role Phone Issac Love MD Primary Care Provider Frieda lopez Encounter Details Date Type Department Care Team Description 02/03/2020 Release of Information Medical Records [address] [place] [address] Abstract, Provider Social History Tobacco Use Types Packs/Day Years [...] on filedocumented in this encounter Care Teams Administration Professional Relationship Specialty Start Date End Date Issac Love MD PCP - General Internal Medicine 10/30/19 documented as of this encounter
== END 2025-01-13 09:05 | disposition home or self-care (01) ==
LOC: HO.HOS 08:42
PROVIDERS: PCP Internal Medicine Medical Oncology; Visit Provider Orthopaedic Surgery
DX: M25.511 Pain in right shoulder (principal)
CPT/HCPCS: 99203; G2211

== ENCOUNTER → 2025-01-13 08:41 | Outpatient (BNVA) | payer OTHER, SELFPAY | PROVIDERS: PCP Internal Medicine Medical Oncology; Visit Provider Orthopaedic Surgery | DX: M25.511 Pain in right shoulder (principal); M54.2 Cervicalgia | CPT/HCPCS: 99202 ==

== ENCOUNTER 2025-01-15 11:43 | Outpatient (AMB) | payer OTHER, BC, SELFPAY ==
--- NOTE | 2025-01-15 11:47 | A.OFFVIS_ITS ---
Vital Signs 01/15/25 11:52 Height 6 ft 2 in Weight 182 lb 6 oz BMI 23.4 BP 145/92 H Blood Pressure Location Rt brachial Position Sitting Pulse 80 Pulse Source Pulse Oximeter Pulse Oximetry (%) 97 Oxygen Delivery Method Room Air Intake Visit Reasons: MRI FOLLOW UP Intake Note: Pain today 08/25 Pocket Machine Operator Required: Yes Pocket Machine Operator Language: Cad Technician Services: Pocket Machine Operator Present Pocket Machine Operator Name: Carla #[id number] Information Interpreted: non-clinical & clinical Accompanied by: Self / Same As Patient Allergies No Known Allergies Allergy (Verified 01/15/25 11:53) HPI Comments Details: The patient is a 44-year-old male presenting with neck pain. The neck pain started about a year ago after a work-related injury, with pain exacerbated by bending down and occasional numbness on the right side. The patient also reports right shoulder pain, which has been assessed by Dr. Rowe, Orthopedics. An MRI indicated rotator cuff tendinopathy and a potential partial thickness tear, and the patient chose activity modifications over injections. Cervical arthritis and a bone spur with the probable left neuroforaminal narrowing at C6-7 were identified on a neck X-ray, prompting a scheduled cervical spine MRI for further evaluation. Denies any recent cough, cold, infection, fever or any significant changes in medical history since last office visit. PRIOR 10/27/24: The patient is a 44-year-old male presenting with pain evaluation and management. Approximately one year prior, he experienced a work-related right shoulder injury characterized by persistent pain, aggravated by movement and described as muscle spasms. Initial imaging revealed no abnormalities, and pain attributed to muscular issues was exacerbated by prescribed exercises. This pain radiates to the scapula, right cervical paraspinals and shoulder blades and sometimes causes numbness, tingling, and electric sensations in the right upper extremity and particularly right thumb. Although previous treatments like Ibuprofen and Cyclobenzaprine had adverse effects, other medications and referral for neck imaging have been considered to assess cervical radiculopathy. - Onset: Approximately one year ago following work-related injury. - Quality and character: Right shoulder-clicking, aching and popping, Neck- spasming, electric-like, tingling, numbness sensations. - Primary location: Right shoulder, radiating to scapula and right upper trapezius. - Exacerbating factors: Overhead reaching, neck flexion, donning/doffing clothing. - Relieving factors: Hot showers, some reduction with Cyclobenzaprine. 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 - Affect: Pain impacts patient?s ability to perform occupational tasks, particularly overhead activities. - Analgesia: Previous use of Ibuprofen and Cyclobenzaprine; both had adverse effects. Pain remains significant at rest. - Adverse Effects: Chest pain from Ibuprofen; drowsiness from Cyclobenzaprine. - Activities of Daily Living: Restricted overhead painting tasks hinder occupational performance. - Aberrant Drug Related Behaviors: None reported. 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 Alert and oriented. Mood and affect appropriate. Follows and participates in conversation appropriately. Respiratory effort is unlabored. No cough. Able to transition from sit to stand unassisted. Ambulates with bilaterally normal heel strike and toe off. Neck Other: Patient with decreased cervical ROM in all planes/especially with right lateral rotation. Reports increased pain with cervical flexion. Spurling compression test equivocal. Pain is unchanged by Spurling maneuver with retraction. Elvey's tension test positive on the right, with radiation of pain from neck to wrist and tingling in right thumb. Lhermitte's test was negative. DTR intact, +2 and symmetrical. No clonus. Patient demonstrated 5/5 motor strength of bilateral upper extremities. Normal test science analyst bilaterally. 2 + radial pulses. Significant tightness throughout right upper trapezius and rhomboids as well as TTP throughout bilateral upper trapezius muscles. No paravertebral tenderness over facet joints bilaterally. Neck: Yes normal visual inspection, Yes full ROM, Yes no lymphadenopathy, Yes supple, No anterior neck swelling, No torticollis, Yes no JVD, No prominent supraclavicular fat pad and No prominent dorsocervical fat pad Back/Spine/Pelvis Cervical Spine: cervical ROM normal, pain with cervical ROM (bending and right sided lateral rotation with bending), No Cervical spine scars present, cervical spasm, No Cervical spine tenderness and No step off deformity Thoracic/Lumbar Spine: thoracic and lumbar spine normal to inspection, No Thora cic/lumbar spine scar(s), thoraco-lumbar ROM normal, No thoracic spinal tenderness and No lumbar spinal tenderness Results Reviewed Results Reviewed: XR SHOULDER, RIGHT 05/08/24 CLINICAL INFORMATION: pain and limited ROM COMPARISON: None available. TECHNIQUE: AP external rotation, Grashey, scapular Y, and axillary views of the right shoulder. FINDINGS: No acute fracture. The humeral head is well-seated within the glenoid fossa. The acromioclavicular joint is intact. The coracoid process and visualized scapula are intact. The acromiohumeral interval is normal. No evidence of soft tissue swelling. No abnormal calcifications or loose bodies. The visualized portions of the lungs are clear. Visualized ribs and clavicle are intact. IMPRESSION: Normal right shoulder. XR CERVICAL SPINE 11/04/24 CLINICAL INFORMATION: M62.838 - Other muscle spasm COMPARISON: None available. TECHNIQUE: 6 views of the cervical spine, inclusive of flexion and extension views, were obtained. FINDINGS: Craniocervical junction is intact. Mild endplate sclerosis C5-6 and C6-7 levels. Focal calcification in the anterior intervertebral disc C7-T1 level. Left neuroforamina narrowing C6-7 secondary to marginal osteophyte formation. No acute cortical disruption or gross malalignment. The upper airway is patent. No lytic or blastic lesions. IMPRESSION: Mild spondylosis C5-6 and 7 levels with the probable left neuroforamina narrowing at C6-7. MR SHOULDER, RIGHT 11/14/24 CLINICAL INFORMATION: Right shoulder pain, from repetitive motion at work; clicking/crepitus with movement, reduced range of motion. COMPARISON: No prior MRI. Right shoulder radiographs 05/08/2024 TECHNIQUE: Multiplanar multisequence MR imaging of the right shoulder was done without IV contrast. Examination performed on a 1.5 Fadumo Siemens unit utilizing standard sequences. FINDINGS: Rotator Cuff and Biceps Tendon: Supraspinatus: Within the anterior most tendon, there is a small rim rent type tear of the bursal aspect of the lateral footplate insertion, measuring approximately 3 mm in thickness by 7 mm in length (series 14, image 15; series 12, image 24). Addition, there is a partial focal tear of the undersurface of the tendon in the critical zone (series 14, image 15) approximately 30% tendinous thickness. There is increased signal within the critical zone of the tendon consistent with tendinopathy. The tendon is otherwise intact without full-thickness tearing or tendinous retraction. Muscle belly is normal. Infraspinatus: There is increased undersurface signal within the critical zone of the tendon (series 12, image 24) likely representing tearing/fraying, approximately 30% thickness of the tendon undersurface. There is mild associated tendinopathy of the tendon. The tendon is otherwise intact and normal in signal. Normal muscle belly. Subscapularis: Appears intact and normal in signal without discrete tear. Normal muscle belly. Teres Minor: Appears intact and normal in signal. There is no discrete tear. Normal muscle belly. Biceps Long Head: Normally located within the bicipital groove. Normal morphology of the tendon. The tendon within the rotator interval is normal. The anchor appears intact. AC Joint and Acromiohumeral Arch: The AC joint is intact. There is very mild degenerative arthritis with minimal superior surface spurring, minimal periarticular edema, and minimal joint capsular distention. There is no significant undersurface spurring. There is a type II acromion present with no undersurface spurs. Glenohumeral Joint and Labrum: Labrum appears grossly intact without displaced tear seen. The glenohumeral joint appears normal without significant degenerative change or cartilaginous defect. There are no foci of subchondral bone plate edema. There is normal joint fluid. Osseous Structures: There is no gross bone marrow edema to suggest fracture or contusion. There is no evidence of abnormal infiltrating bone marrow signal. Spino-glenoid Notch: Normal. Quadrilateral Space: Normal. Other: There is increased signal and trace fluid in the subacromial/subdeltoid bursa consistent with bursitis. The glenohumeral ligaments appear intact without thickening. IMPRESSION: 1. There is subtle bursal surface rim rent tearing and approximately 30% undersurface tearing of the anterior fibers of the supraspinatus tendon. There is associated supraspinatus tendinopathy. No full-thickness tear or tendinous retraction. 2. There is a subtle approximately 30% undersurface tear of the mid fibers of the infraspinatus tendon, with associated tendinopathy of the tendon. There is no full-thickness tear or tendinous retraction. 3. The subscapularis and teres minor tendons are intact and normal in signal. 4. There is mild to moderate subacromial/subdeltoid bursitis. 5. The glenoid labrum appears grossly intact without displaced tear. 6. Minimal degenerative arthritis of the AC joint with no significant undersurface spurring. Assessment & Plan Assessment & Plan (1) Muscle spasms of neck: Code(s): M62.838 - Other muscle spasm Category: Medical (2) Cervicalgia: Code(s): M54.2 - Cervicalgia Category: Medical (3) Cervical radiculitis: Code(s): M54.12 - Radiculopathy, cervical region Category: Medical (4) Work related injury: Code(s): Y99.0 - Civilian activity done for income or pay Category: Medical (5) Cervical spondylosis: Code(s): M47.812 - Spondylosis without myelopathy or radiculopathy, cervical region Category: Medical (6) Cervicogenic headache: Code(s): G44.86 - Cervicogenic headache Category: Medical Plan The plan involves conducting a cervical spine MRI to further investigate the neck pain and its possible link to the right shoulder pain. Should the MRI indicate cervical stenosis or additional arthritis, interventional treatments, including diagnostic and therapeutic injections, neuromodulation and RFA, may be explored. The patient will continue with activity modifications for shoulder pain management, with the option for further intervention if necessary. All questions and concerns have been answered and patient agreed with the plan. Follow up for MRI results and sooner as needed. Patient was informed and verbally consented to the use of an ambient scribe for clinic note documentation during this visit. Orders: Orders MR cervical spine wo con Today G44.86 - Cervicogenic headache, M47.812 - Spondylosis without myelopathy or radiculopathy, cervical region, M54.12 - Radiculopathy, cervical region, M54.2 - Cervicalgia, M62.838 - Other muscle spasm Coding Level of Care Code Est Pt Level 4 (73773) Complex EM visit Add On G2211 Diagnoses Muscle spasms of neck M62.838 Cervicalgia M54.2 Cervical radiculitis M54.12 Work related injury Y99.0 Cervical spondylosis M47.812 Cervicogenic headache G44.86
[2025-01-15 11:52] VITALS: BP 145/92; PULSE 80; O2SAT 97; BMI 23.4
== END 2025-01-15 12:03 | disposition home or self-care (01) ==
LOC: HO.PMC 11:43
PROVIDERS: PCP Internal Medicine Medical Oncology; Visit Provider Nurse Practitioner Family
DX: M62.838 Other muscle spasm (principal); M54.2 Cervicalgia; M54.12 Radiculopathy, cervical region; Y99.0 Civilian activity done for income or pay; M47.812 Spondylosis without myelopathy or radiculopathy, cervical region; G44.86 Cervicogenic headache
CPT/HCPCS: 99214; G2211

== ENCOUNTER → 2025-01-15 11:43 | Outpatient (BNVA) | payer OTHER, BC, SELFPAY | PROVIDERS: PCP Internal Medicine Medical Oncology; Visit Provider Nurse Practitioner Family | DX: Z71.2 Person consulting for explanation of examination or test findings (principal); M62.838 Other muscle spasm; M54.2 Cervicalgia; M54.12 Radiculopathy, cervical region; M47.812 Spondylosis without myelopathy or radiculopathy, cervical region; G44.86 Cervicogenic headache | CPT/HCPCS: 99212 ==

== ENCOUNTER → 2025-03-01 09:39 | Outpatient (BNV) | payer OTHER, SELFPAY | PROVIDERS: PCP Internal Medicine; Visit Provider Radiology Diagnostic Radiology | DX: M50.123 Cervical disc disorder at C6-C7 level with radiculopathy (principal) | CPT/HCPCS: 72141 ==

== ENCOUNTER 2025-03-01 09:46 | Outpatient (REF) | payer OTHER, BC, SELFPAY ==
--- NOTE | ~2025-03-01 | MR_ITS ---
CLINICAL HISTORY: M54.12 - Radiculopathy, cervical region Examination: MRI cervical spine without intravenous contrast Comparison: CR/SR - XR CERVICAL SPINE 4-5 VIEWS - 11/04/24 10:17 EDT Findings: The cervical spine is anatomic in alignment and demonstrates a normal anatomic lordotic curvature. The vertebral body heights are well maintained. No acute or chronic compression deformities are present. The marrow signal is unremarkable. The cervical cord is normal caliber and signal intensity. Craniocervical junction and cervical medullary junction are preserved. No tonsillar ectopia. Individual intervertebral disc levels as follows: C2-C3: Normal disc height and signal with no discogenic changes. No disc bulge protrusion or extrusion. No central or foraminal stenosis or thecal sac compression. Normal posterior elements. C3-C4: Normal disc height and signal with no discogenic changes. No disc bulge protrusion or extrusion. No central or foraminal stenosis or thecal sac compression. Normal posterior elements. C4-C5: Normal disc height and signal with no discogenic changes. No disc bulge protrusion or extrusion. No central or foraminal stenosis or thecal sac compression Normal posterior elements. C5-C6: Normal disc height and signal with no discogenic changes. No disc bulge protrusion or extrusion. No central or foraminal stenosis or thecal sac compression. Normal posterior elements. C6-C7: Normal disc height and signal with no discogenic changes. Subarticular disc herniation on the left with mild impingement of C7 exiting nerve root on the left.No cord impingementSubarticular disc herniation on the right but no definite nerve root impingement C7-T1: Normal disc height and signal with no discogenic changes. No disc bulge protrusion or extrusion. No central or foraminal stenosis or thecal sac compression. Normal posterior elements. Impression: 1. Cervical cord normal caliber and signal throughout 2. No compression fractures or listhesis. Normal cervical lordosis. 3. Subarticular disc herniations C6-7 levels. No cord impingement. There is probable impingement of C7 exiting nerve root on the left. This document has been electronically signed by: Maury Bhat MD on 03/01/2025 11:38:21
== END 2025-03-01 09:47 | disposition home or self-care (01) ==
LOC: HO.MRI 09:46
PROVIDERS: PCP Internal Medicine; Visit Provider Nurse Practitioner Family
DX: M54.12 Radiculopathy, cervical region (principal); M47.812 Spondylosis without myelopathy or radiculopathy, cervical region; G44.86 Cervicogenic headache; M54.2 Cervicalgia; M62.838 Other muscle spasm
CPT/HCPCS: 72141

== ENCOUNTER 2025-03-25 13:08 | Outpatient (AMB) | payer BC, SELFPAY ==
--- NOTE | 2025-03-25 13:16 | A.OFFPC_ITS ---
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 Required: No Accompanied by: Self / Same As Patient Allergies No Known Allergies Allergy (Verified 03/25/25 14:08) Medication List - Last Reconciled 03/25/25 by Mei Orellana MD No Known Home Meds Tobacco use date assessed: 03/25/25 Dental Screening Dental Screen Date: 03/25/25 Did you have a dental visit in the last 12 months?: No Did you have a dental problem in the last 6 months where you did not have access to dental care?: No Was dental information given to patient?: No HPI HPI Comments History of Present Illness Details The patient is a 44-year-old male presenting for the management of multiple chronic conditions including bursitis, herniated disc, and elevated PSA levels. The patient reports a history of bursitis, specifically involving the subacromial and subdeltoid regions, which causes significant discomfort and is exacerbated by certain movements. He has previously undergone physical therapy, which provided some relief, but the symptoms persist. The patient also has a herniated disc at the C6-C7 level, identified through an MRI conducted approximately a month ago. This condition results in numbness and pain radiating to the fingers, impacting daily activities. Additionally, the patient has elevated bilirubin levels and an elevated PSA, which have been noted in previous laboratory tests. He has been referred to urology for further evaluation of the elevated PSA. The patient experiences symptoms of depression and anxiety, which are attributed to living alone and work-related stress. He reports feeling sad and anxious, with a PHQ-9 indicating mild depression. [facility] Medical History (Updated 03/25/25 @ 20:01 by Mei Orellana MD) Migraine headache Patellofemoral pain syndrome of right knee Family History (Updated 03/25/25 @ 14:14 by Mei Orellana MD) Father No problems noted. 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 1. Little interest or pleasure in doing things: nearly every day 2. Feeling down, depressed, or hopeless: not at all 3. Trouble falling or staying asleep, or sleeping too much: more than half the days 4. Feeling tired or having little energy: not at all 5. Poor appetite or overeating: not at all 6. Feeling bad about yourself - or that you are a failure or have let yourself or your family down: not at all 7. Trouble concentrating on things, such as reading the newspaper or watching television: not at all 8. Moving or speaking so slowly that other people could have noticed. Or the opposite - being so fidgety or restless that you have been moving around a lot more than usual: not at all 9. Thoughts that you would be better off or of hurting yourself in some way: not at all Total score: 5 Depression Screening Interpretation: Positive Depression Screening Follow-up: Existing condition and Follow-up Visit Requested Depression Screening Done: Yes 34968 - PHQ-9 Billing: Yes Source: Developed by Drs. Mahendra Holloway, Anamaria Helms, Brigido Dodson and colleagues, with an educational jc from [employer]. Thrive Questionnaire Date Thrive assessed: 03/25/25 I am a: Patient What is your living situation today?: I choose not to answer this question Within the past 12 months, did the food you bought not last and you didn't have the money to get more?: I choose not to answer this question Within the past 12 months, did you worry whether your food would run out before you got money to buy more?: I choose not to answer this question Do you have trouble paying for medicines?: No Do you have trouble getting transportation to medical appointments?: No Do you have trouble paying your heating and electricity bill?: No Do you have trouble taking care of your child, family member or friend?: No Do you have trouble with day-to-day activities such as bathing, preparing meals, shopping, managing finances, etc.?: No Are you currently unemployed and looking for a job?: No Are you interested in more education?: I choose not to answer this question Please select the resources that you would like help with: None Currently or been in a relationship where the following occur: I choose not to answer THRIVE Score: 0 AUDIT C Alcohol Use Questionnaire (AUDIT-C) 1. How often do you have a drink containing alcohol?: Monthly or less 2. How many drinks containing alcohol do you have on a typical day when you are drinking?: 1 or 2 3. How often do you have six or more drinks on one occasion?: Never Total Score: 1 Score Reviewed/Action Taken: No PAVITHRA-7 AMB Questionnaire PAVITHRA-7 Date PAVITHRA - 7 assessed: 03/25/25 Feeling nervous, anxious, or on edge: 0 = Not at all Not being able to stop or control worryin = Nearly every day Worrying too much about different things: 3 = Nearly every day Trouble relaxin = Nearly every day Being so restless that it is hard to sit still: 3 = Nearly every day Becoming easily annoyed or irritable: 0 = Not at all Feeling afraid as if something awful might happen: 0 = Not at all Total PAVITHRA-7 score (0-4 normal; 5-9 mild; 10-14 moderate; 15-21 severe): 12 Source: Developed by Drs. Mahendra Holloway, Anamaria Helms, Brigido Dodson and colleagues, with an educational jc from [employer]. PAVITHRA-7 Assessment Billing PAVITHRA-7 Assessment Tool: PAVITHRA-7 Assessment 46190 Review of Systems Const All systems reviewed & are unremarkable except as noted in HPI and below Card Denies chest pain at rest, Denies chest pain with activity, Denies edema, Denies irregular heart rhythm, Denies claudication, Denies dyspnea, Denies dyspnea on exertion, Denies orthopnea, Denies paroxysmal nocturnal dyspnea and Denies slow heart rate Resp Denies cough, Denies dyspnea and Denies dyspnea on exertion GI Denies abdominal pain, Denies change in bowel habits, Denies excessive flatus, Denies nausea and Denies vomiting Denies urinary hesitancy, Denies urinary incontinence and Denies urinary urgency Musc Denies atrophy, Denies deformity and Denies limited range of motion Skin/Breast Denies bleeding lesions, Denies changing lesions and Denies rash Physical exam (Primary Care) Vital Signs: Last Vital Signs Pulse 84 03/25/25 13:17 BP 136/62 03/25/25 13:17 Pulse Ox 98 03/25/25 13:17 Oxygen Delivery Method Room Air 03/25/25 13:17 BMI result Body Mass Index 23.4 Tobacco/Smoking Status: Tobacco use Status Tobacco use date assessed 03/25/25 03/25/25 13:19 Patient Tobacco Use Status Never used Tobacco 03/25/25 14:14 PHQ-9: PHQ-9 Score PHQ-9: Total score 5 03/25/25 14:15 Depression Screening Interpretation: Positive Depression Screening Follow-up: Existing condition and Follow-up Visit Requested Thrive Assessment: Date of Thrive Assessment Date Thrive assessed 03/25/25 03/25/25 13:19 Currently or been in a relationship where the following occur: I choose not to answer Resp Effort & Inspection: normal respiratory effort Auscultation: clear to auscultation bilaterally Cardio Jugular venous distension: no JVD Rate: regular rate Rhythm: regular rhythm Heart sounds: S1 normal heart sound present and S2 normal heart sound present Extrem General: Yes full ROM Coding Level of Care Code New Pt Level 4 (68348) Complex EM visit Add On G2211 Diagnoses Elevated bilirubin R17 PSA elevation R97.20 Rotator cuff tear, right M75.101 Cervical spondylosis M47.812 Mild recurrent major depression F33.0 Anxiety F41.9 Additional Codes PAVITHRA-7 Assessment Billing - PAVITHRA-7 Assessment Tool: PAVITHRA-7 Assessment 90258 ([id number]) PHQ-9 - 20603 - PHQ-9 Billing: Yes ([id number]) Time Spent (min) 25 Assessment & Plan Assessment & Plan (1) Elevated bilirubin: Code(s): R17 - Unspecified jaundice Category: Medical (2) PSA elevation: Code(s): R97.20 - Elevated prostate specific antigen [PSA] Category: Medical (3) Rotator cuff tear, right: Code(s): M75.101 - Unspecified rotator cuff tear or rupture of right shoulder, not specified as traumatic Category: Medical (4) Cervical spondylosis: Code(s): M47.812 - Spondylosis without myelopathy or radiculopathy, cervical region Category: Medical (5) Mild recurrent major depression: Code(s): F33.0 - Major depressive disorder, recurrent, mild Category: Medical (6) Anxiety: Code(s): F41.9 - Anxiety disorder, unspecified Category: Medical Plan Plan Patient was informed and verbally consented to the use of an ambient scribe for clinic note documentation during this visit. 1. Bursitis of unspecified shoulder M75.50 The patient will continue with physical therapy to manage bursitis symptoms, focusing on exercises that do not exacerbate pain. If symptoms persist, further evaluation may be necessary to consider additional interventions such as injections. 2. Other cervical disc displacement at C6-C7 level M50.223 Referral to [facility] for evaluation of the herniated disc at C6-C7 is planned to explore potential treatment options. The patient is advised to monitor symptoms and report any worsening of numbness or pain. 3. Elevated prostate specific antigen [PSA] R97.20 The patient is referred to urology for further evaluation of elevated PSA levels to rule out any underlying pathology. A repeat PSA test will be conducted to monitor levels. 4. Major depressive disorder, recurrent, mild F33.0 HCC 59 The patient is encouraged to engage in activities that alleviate stress and imp rove mood, such as social interactions and hobbies. Follow-up with mental health services is recommended if symptoms of depression persist or worsen. 5. Anxiety disorder, unspecified F41.9 The patient is advised to practice stress-reduction techniques and consider counseling if anxiety symptoms continue to impact daily life. 6. Cervical disc disorder, unspecified, unspecified cervical region M50.90 Call pain management for appointment. 7. Elevated bilirubin Repeat labs. Orders: Orders PSA,Total (Free>4and<10) Today R35.1 - Nocturia Liver Panel Today R17 - Unspecified jaundice Bilirubin Direct Today R17 - Unspecified jaundice Referrals Urology Referral R97.20 - Elevated prostate specific antigen [PSA]
[2025-03-25 13:17] VITALS: BP 136/62; PULSE 84; O2SAT 98; BMI 23.4
== END 2025-03-25 14:29 | disposition home or self-care (01) ==
LOC: HO.HMCH 13:09
PROVIDERS: PCP Internal Medicine; Visit Provider Internal Medicine
DX: R17 Unspecified jaundice (principal); R97.20 Elevated prostate specific antigen [PSA]; M75.101 Unspecified rotator cuff tear or rupture of right shoulder, not specified as traumatic; M47.812 Spondylosis without myelopathy or radiculopathy, cervical region; F33.0 Major depressive disorder, recurrent, mild; F41.9 Anxiety disorder, unspecified

== ENCOUNTER → 2025-03-25 13:08 | Outpatient (BNVA) | payer BC, OTHER, SELFPAY | PROVIDERS: PCP Internal Medicine Medical Oncology; Visit Provider Internal Medicine | DX: Z76.89 Persons encountering health services in other specified circumstances (principal); M75.50 Bursitis of unspecified shoulder; M50.223 Other cervical disc displacement at C6-C7 level; R97.20 Elevated prostate specific antigen [PSA]; R17 Unspecified jaundice; M75.101 Unspecified rotator cuff tear or rupture of right shoulder, not specified as traumatic; M47.812 Spondylosis without myelopathy or radiculopathy, cervical region; F33.0 Major depressive disorder, recurrent, mild; F41.9 Anxiety disorder, unspecified; M50.90 Cervical disc disorder, unspecified, unspecified cervical region; Z13.31 Encounter for screening for depression; Z13.39 Encounter for screening examination for other mental health and behavioral disorders | CPT/HCPCS: 96127 ==

== ENCOUNTER 2025-04-23 11:42 | Outpatient (AMB) | payer BC, SELFPAY ==
--- NOTE | 2025-04-23 11:46 | MHC.OFFVIS ---
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 The patient has a known history of right shoulder pain and neck pain that radiates to the right arm. The cervical spine MRI revealed no compression, fracture, or listhesis, and normal cervical lordosis. However, there is subarticular disc herniation at the C6 and C7 levels with probable impingement of the C7 exiting nerve root on the left, which is inconsistent with his right-sided symptoms. The patient reports that his symptoms have been mild to moderate in severity. He declines interventional treatments at this time but will notify the office if the right shoulder pain exacerbates, at which point he will consider a right intra-articular steroidal injection. PRIOR: The patient is a 44-year-old male presenting with neck pain. The neck pain started about a year ago after a work-related injury, with pain exacerbated by bending down and occasional numbness on the right side. The patient also reports right shoulder pain, which has been assessed by Dr. Rowe, Orthopedics. An MRI indicated rotator cuff tendinopathy and a potential partial thickness tear, and the patient chose activity modifications over injections. Cervical arthritis and a bone spur with the probable left neuroforaminal narrowing at C6-7 were identified on a neck X-ray, prompting a scheduled cervical spine MRI for further evaluation. Denies any recent cough, cold, infection, fever or any significant changes in medical history since last office visit. PRIOR 10/27/24: The patient is a 44-year-old male presenting with pain evaluation and management. Approximately one year prior, he experienced a work-related right shoulder injury characterized by persistent pain, aggravated by movement and described as muscle spasms. Initial imaging revealed no abnormalities, and pain attributed to muscular issues was exacerbated by prescribed exercises. This pain radiates to the scapula, right cervical paraspinals and shoulder blades and sometimes causes numbness, tingling, and electric sensations in the right upper extremity and particularly right thumb. Although previous treatments like Ibuprofen and Cyclobenzaprine had adverse effects, other medications and referral for neck imaging have been considered to assess cervical radiculopathy. - Onset: Approximately one year ago following work-related injury. - Quality and character: Right shoulder-clicking, aching and popping, Neck-spasming, electric-like, tingling, numbness sensations. - Primary location: Right shoulder, radiating to scapula and right upper trapezius. - Exacerbating factors: Overhead reaching, neck flexion, donning/doffing clothing. - Relieving factors: Hot showers, some reduction with Cyclobenzaprine. 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 - Affect: Pain impacts patient?s ability to perform occupational tasks, particularly overhead activities. - Analgesia: Previous use of Ibuprofen and Cyclobenzaprine; both had adverse effects. Pain remains significant at rest. - Adverse Effects: Chest pain from Ibuprofen; drowsiness from Cyclobenzaprine. - Activities of Daily Living: Restricted overhead painting tasks hinder occupational performance. - Aberrant Drug Related Behaviors: None reported. [facility] Medical History Migraine headache Patellofemoral pain syndrome of right knee Family History Father No problems noted. 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 All systems reviewed & are unremarkable except as noted in HPI and below Physical Exam Vital Signs: Last Vital Signs Pulse 82 04/23/25 11:49 BP 135/77 04/23/25 11:49 Pulse Ox 99 04/23/25 11:49 Oxygen Delivery Method Room Air 04/23/25 11:49 BMI result Body Mass Index 23.9 General: Appears afebrile. Alert and oriented. Mood and affect appropriate. Follows and participates in conversation appropriately. Respiratory effort is unlabored. No cough. Able to transition from sit to stand unassisted. Ambulates with bilaterally normal heel strike and toe off. Neck Neck: Yes normal visual inspection, Yes full ROM, Yes no lymphadenopathy, Yes supple, No anterior neck swelling, No torticollis, Yes no JVD, No prominent supraclavicular fat pad and No prominent dorsocervical fat pad Back/Spine/Pelvis Cervical Spine: cervical ROM normal, cervical muscular tenderness (right), pain with cervical ROM (bending and right sided lateral rotation with bending), No Cervical spine scars present, cervical spasm, No Cervical spine tenderness and No step off deformity Extrem Right upper extremity: shoulder/upper arm (Limited ROM due to pain with overhead reaches and repetitive activities) Details: normal to inspection, tenderness Location: over the biceps tendon and over the subacromial bursa and crepitus; no swelling, no ecchymosis and no unusual warmth Results Reviewed Results Reviewed: XR SHOULDER, RIGHT 05/08/24 CLINICAL INFORMATION: pain and limited ROM COMPARISON: None available. TECHNIQUE: AP external rotation, Grashey, scapular Y, and axillary views of the right shoulder. FINDINGS: No acute fracture. The humeral head is well-seated within the glenoid fossa. The acromioclavicular joint is intact. The coracoid process and visualized scapula are intact. The acromiohumeral interval is normal. No evidence of soft tissue swelling. No abnormal calcifications or loose bodies. The visualized portions of the lungs are clear. Visualized ribs and clavicle are intact. IMPRESSION: Normal right shoulder. XR CERVICAL SPINE 11/04/24 CLINICAL INFORMATION: M62.838 - Other muscle spasm COMPARISON: None available. TECHNIQUE: 6 views of the cervical spine, inclusive of flexion and extension views, were obtained. FINDINGS: Craniocervical junction is intact. Mild endplate sclerosis C5-6 and C6-7 levels. Focal calcification in the anterior intervertebral disc C7-T1 level. Left neuroforamina narrowing C6-7 secondary to marginal osteophyte formation. No acute cortical disruption or gross malalignment. The upper airway is patent. No lytic or blastic lesions. IMPRESSION: Mild spondylosis C5-6 and 7 levels with the probable left neuroforamina narrowing at C6-7. MR SHOULDER, RIGHT 11/14/24 CLINICAL INFORMATION: Right shoulder pain, from repetitive motion at work; clicking/crepitus with movement, reduced range of motion. COMPARISON: No prior MRI. Right shoulder radiographs 05/08/2024 TECHNIQUE: Multiplanar multisequence MR imaging of the right shoulder was done without IV contrast. Examination performed on a 1.5 Fadumo Siemens unit utilizing standard sequences. FINDINGS: Rotator Cuff and Biceps Tendon: Supraspinatus: Within the anterior most tendon, there is a small rim rent type tear of the bursal aspect of the lateral footplate insertion, measuring approximately 3 mm in thickness by 7 mm in length (series 14, image 15; series 12, image 24). Addition, there is a partial focal tear of the undersurface of the tendon in the critical zone (series 14, image 15) approximately 30% tendinous thickness. There is increased signal within the critical zone of the tendon consistent with tendinopathy. The tendon is otherwise intact without full-thickness tearing or tendinous retraction. Muscle belly is normal. Infraspinatus: There is increased undersurface signal within the critical zone of the tendon (series 12, image 24) likely representing tearing/fraying, approximately 30% thickness of the tendon undersurface. There is mild associated tendinopathy of the tendon. The tendon is otherwise intact and normal in signal. Normal muscle belly. Subscapularis: Appears intact and normal in signal without discrete tear. Normal muscle belly. Teres Minor: Appears intact and normal in signal. There is no discrete tear. Normal muscle belly. Biceps Long Head: Normally located within the bicipital groove. Normal morphology of the tendon. The tendon within the rotator interval is normal. The anchor appears intact. AC Joint and Acromiohumeral Arch: The AC joint is intact. There is very mild degenerative arthritis with minimal superior surface spurring, minimal periarticular edema, and minimal joint capsular distention. There is no significant undersurface spurring. There is a type II acromion present with no undersurface spurs. Glenohumeral Joint and Labrum: Labrum appears grossly intact without displaced tear seen. The glenohumeral joint appears normal without significant degenerative change or cartilaginous defect. There are no foci of subchondral bone plate edema. There is normal joint fluid. Osseous Structures: There is no gross bone marrow edema to suggest fracture or contusion. There is no evidence of abnormal infiltrating bone marrow signal. Spino-glenoid Notch: Normal. Quadrilateral Space: Normal. Other: There is increased signal and trace fluid in the subacromial/subdeltoid bursa consistent with bursitis. The glenohumeral ligaments appear intact without thickening. IMPRESSION: 1. There is subtle bursal surface rim rent tearing and approximately 30% undersurface tearing of the anterior fibers of the supraspinatus tendon. There is associated supraspinatus tendinopathy. No full-thickness tear or tendinous retraction. 2. There is a subtle approximately 30% undersurface tear of the mid fibers of the infraspinatus tendon, with associated tendinopathy of the tendon. There is no full-thickness tear or tendinous retraction. 3. The subscapularis and teres minor tendons are intact and normal in signal. 4. There is mild to moderate subacromial/subdeltoid bursitis. 5. The glenoid labrum appears grossly intact without displaced tear. 6. Minimal degenerative arthritis of the AC joint with no significant undersurface spurring. MR cervical spine wo con 03/01/25 CLINICAL HISTORY: M54.12 - Radiculopathy, cervical region Examination: MRI cervical spine without intravenous contrast Comparison: CR/SR - XR CERVICAL SPINE 4-5 VIEWS - 11/04/24 10:17 EDT Findings: The cervical spine is anatomic in alignment and demonstrates a normal anatomic lordotic curvature. The vertebral body heights are well maintained. No acute or chronic compression deformities are present. The marrow signal is unremarkable. The cervical cord is normal caliber and signal intensity. Craniocervical junction and cervical medullary junction are preserved. No tonsillar ectopia. Individual intervertebral disc levels as follows: C2-C3: Normal disc height and signal with no discogenic changes. No disc bulge protrusion or extrusion. No central or foraminal stenosis or thecal sac compression. Normal posterior elements. C3-C4: Normal disc height and signal with no discogenic changes. No disc bulge protrusion or extrusion. No central or foraminal stenosis or thecal sac compression. Normal posterior elements. C4-C5: Normal disc height and signal with no discogenic changes. No disc bulge protrusion or extrusion. No central or foraminal stenosis or thecal sac compression Normal posterior elements. C5-C6: Normal disc height and signal with no discogenic changes. No disc bulge protrusion or extrusion. No central or foraminal stenosis or thecal sac compression. Normal posterior elements. C6-C7: Normal disc height and signal with no discogenic changes. Subarticular disc herniation on the left with mild impingement of C7 exiting nerve root on the left.No cord impingementSubarticular disc herniation on the right but no definite nerve root impingement C7-T1: Normal disc height and signal with no discogenic changes. No disc bulge protrusion or extrusion. No central or foraminal stenosis or thecal sac compression. Normal posterior elements. Impression: 1. Cervical cord normal caliber and signal throughout 2. No compression fractures or listhesis. Normal cervical lordosis. 3. Subarticular disc herniations C6-7 levels. No cord impingement. There is probable impingement of C7 exiting nerve root on the left. Assessment & Plan Assessment & Plan (1) Cervical radiculitis: Code(s): M54.12 - Radiculopathy, cervical region Category: Medical (2) Right shoulder pain: Code(s): M25.511 - Pain in right shoulder Category: Medical (3) Cervical spondylosis: Code(s): M47.812 - Spondylosis without myelopathy or radiculopathy, cervical region Category: Medical (4) Rotator cuff tear, right: Code(s): M75.101 - Unspecified rotator cuff tear or rupture of right shoulder, not specified as traumatic Category: Medical Plan The patient will continue to monitor his symptoms and notify the office if the right shoulder pain exacerbates. At that time, he will consider a right intra-articular steroidal injection with local and fluoroscopy as a potential intervention. Expectations, risks and benefits were reviewed. All questions and concerns have been answered and patient agreed with the treatment plan. Follow up as needed. Patient was informed and verbally consented to the use of an ambient scribe for clinic note documentation during this visit. Patient Instructions: I discussed with the patient the findings of the cervical spine MRI, which showed subarticular disc herniation at C6-C7 and probable impingement of the C7 exiting nerve root on the left. We reviewed the inconsistency of these findings with his right-sided symptoms. The patient declined interventional treatments at this time but agreed to consider a right intraarticular steroidal injection if his right shoulder pain worsens. - Monitor symptoms and contact the office if right shoulder pain worsens. - Consider right intraarticular steroidal injection if pain exacerbates. Coding Level of Care Code Est Pt Level 4 (78574) Complex EM visit Add On G2211 Diagnoses Cervical radiculitis M54.12 Right shoulder pain M25.511 Cervical spondylosis M47.812 Rotator cuff tear, right M75.101
[2025-04-23 11:49] VITALS: BP 135/77; PULSE 82; O2SAT 99; BMI 23.9
== END 2025-04-23 12:05 | disposition home or self-care (01) ==
LOC: HO.PMC 11:43
PROVIDERS: PCP Internal Medicine; Visit Provider Nurse Practitioner Family
DX: M54.12 Radiculopathy, cervical region (principal); M25.511 Pain in right shoulder; M47.812 Spondylosis without myelopathy or radiculopathy, cervical region; M75.101 Unspecified rotator cuff tear or rupture of right shoulder, not specified as traumatic
CPT/HCPCS: 99214

== ENCOUNTER 2025-07-04 08:40 | Outpatient (REF) | payer BC, SELFPAY ==
[2025-07-04 10:45] LABS: Alanine Aminotransferase 20 U/L (0-40); Albumin Level 4.6 g/dL (3.5-5.0); Alkaline Phosphatase 49 U/L (39-117); Aspartate Amino Transferase 20 U/L (5-37); Total Protein 7.5 g/dL (6.5-8.0)
[2025-07-04 11:10] LABS: PSA,Total (Free>4and<10) 5.09 ng/mL (0.00-4.00)
== END 2025-07-04 08:41 | disposition home or self-care (01) ==
LOC: HO.LAB 08:40
PROVIDERS: PCP Internal Medicine; Visit Provider Internal Medicine
DX: R35.1 Nocturia (principal); R17 Unspecified jaundice; Z12.5 Encounter for screening for malignant neoplasm of prostate
CPT/HCPCS: 36415; 80076; 84153; 84154